=== PATIENT | female | born 1965 | race Caucasian/White ===

== ENCOUNTER → 2024-02-04 07:29 | Outpatient (REF) | payer OTHER, SELFPAY | LOC: HWRAD 07:29 | PROVIDERS: ATTENDING PHYSICIAN Specialist; FAMILY PHYSICIAN Family Medicine | DX: N20.0 Calculus of kidney (principal) | CPT/HCPCS: 74176 ==

== ENCOUNTER → 2024-02-12 14:29 | Outpatient (REF) | payer OTHER, SELFPAY | LOC: WDC 14:29 | PROVIDERS: ATTENDING PHYSICIAN Family Medicine | DX: Z12.31 Encounter for screening mammogram for malignant neoplasm of breast (principal); R92.8 Other abnormal and inconclusive findings on diagnostic imaging of breast | CPT/HCPCS: 76642; 77063; 77067 ==

== ENCOUNTER 2024-02-20 06:22 | Day surgery (SDC) | payer OTHER, SELFPAY ==
[2024-02-11 14:06] VITALS: BMI 27.9
[2024-02-11 14:38] LABS: Hematocrit 36.5 % (37.0-47.0); Hemoglobin 12.9 g/dL (12.0-16.0); Mean Corp Hgb Conc. 35.3 g/dL (33.0-37.0); Mean Corpuscular Hgb 30.7 pg (27.0-31.0); Mean Corpuscular Volume 86.9 fL (81.0-99.0); Mean Platelet Volume 10.4 fL (7.4-10.4); Platelet Count 212 10^3/uL (130-400); Red Cell Dist. Width 12.6 % (11.5-14.5); White Blood Cell Count 5.9 10^3/uL (4.8-10.8)
[2024-02-20 12:48] LABS: Glucose - Point of Care 116 mg/dl (70-99)
[2024-02-20] MEDS: NORMOSOL-R/PLASMALYTE-A 1000 IV (12:50)
[2024-02-20 12:52] VITALS: BMI 27.9
[2024-02-20 12:53] VITALS: BP 135/77
[2024-02-20] MEDS: TRANSDERM-SCOP 1 PATCH TRANSDERM (13:16)
[2024-02-20 15:11] VITALS: BP 130/76; BP 135/77
[2024-02-20 15:15] VITALS: BP 123/72
[2024-02-20 15:30] VITALS: BP 110/65
[2024-02-20 15:33] LABS: Glucose - Point of Care 89 mg/dl (70-99)
[2024-02-20] MEDS: Pyridium 200 MG PO (15:36)
[2024-02-20 15:42] VITALS: BP 123/70
[2024-02-20 16:07] VITALS: BP 118/68
== END 2024-02-20 16:17 | disposition home or self-care (01) ==
LOC: SDS 06:22
PROVIDERS: ATTENDING PHYSICIAN Specialist; FAMILY PHYSICIAN Family Medicine
DX: N20.2 Calculus of kidney with calculus of ureter (principal); N13.30 Unspecified hydronephrosis
CPT/HCPCS: 52356; 36415; 74018; 76000; 82962; 85027; 93005; C1894; C2617

== ENCOUNTER 2024-05-04 23:03 | Emergency (ER) | payer OTHER, SELFPAY ==
[2024-05-04 23:16] VITALS: BP 178/93
--- NOTE | 2024-05-04 23:35 | ED.GENMED ---
History of Present Illness
General
Chief Complaint: Flank Pain
Source: patient
Exam Limitations: none
Time Seen by Provider: 05/04/24 23:24
History of Present Illness
History of Present Illness:
This is a 59 year old female that comes in with c/o severe abd pain that started at 7:30pm. States that it is the left front and back. states that the pain has been constant and that she is nauseated ad having dry heaves. States that she feels like
she has to move her bowels but very little comes out. States that she did have a normal BM today. Denies any fever, chills, chest pain, SOB, diarrhea, headache, dizziness, urinary burning or frequency.
Past History
Past History
ED Past Medical History: Cancer (CML), NIDDM and Other (Nephrolithiasis, Sleep apnea, UTI, Pelvic pain)
ED Past Surgical History: Appendectomy, Cholecystectomy, Gynecological (Hysterectomy) and Urological
Social History
Tobacco: Non-smoker
Alcohol: None
Drug: None
Personal:
Living: with family
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
Family History
Family History: Other (Reviewed and non-contributory)
Review of Systems
Review of Systems
All Other Systems: ROS reviewed and negative except as documented in HPI and ROS
Constitutional: Reports no symptoms; Denies fever or chills
EENT: Reports no symptoms
Respiratory: Reports no symptoms; Denies cough or trouble breathing
Cardiac: Reports no symptoms; Denies chest pain
ABD/GI: Reports abdominal pain, nausea and vomiting; Denies diarrhea
: Reports no symptoms; Denies dysuria, frequency or urgency
Musculoskeletal: Reports no symptoms
Skin: Reports no symptoms
Neurological: Reports no symptoms; Denies dizzy or headache
Psychiatric: Reports no symptoms
Phy Exam
General Physical Exam
General Presentation: mild distress
General age: appears stated age
General Skin: warm and dry
General Habitus: normal
General Mental: alert
General Hydration: dry mucous membranes
ENT Exam
ENT Exam: TM's normal, pharynx normal and neck supple
Eye Exam
Eye Exam: EOMI
Cardiovascular Exam
Cardiovascular Exam: regular rate/rhythm, no edema, no murmur and normal peripheral pulses
Pulmonary Exam
Pulmonary Exam: lungs clear, no respiratory distress, no rales, chest non tender, no crackles, no rhonchi, no wheezing and no cough
Gastrointestinal Exam
Gastrointestinal Exam: normal bowel sounds, soft, no organomegaly, no pulsatile mass, non distended, no cva tenderness and tender (Slight left sided tenderness with palpation. )
Musculoskeletal Exam
Musculoskeletal Exam: full ROM and no edema
Skin Exam
Skin Exam: normal color, warm/dry, no rash and no petechia
Psychiatric Exam
Psychiatric Exam: normal mood/affect
Course
Orders/Labs/Results
Orders:
Orders
05/04/24 23:34
Urinalysis Reflex To Culture Urgent
Date Specimen was Collected: 05/05/24
Time Specimen was Collected: 01:24
0.9% Sodium Chloride 1000 ml [Nss] 1,000 ml IV BOLUS
Ketorolac [Toradol] 30 mg IV NOW STA
05/04/24 23:41
Ondansetron Injectable [Zofran] 4 mg IV NOW STA
05/04/24 23:44
Complete Blood Count/With Diff Urgent
Comprehensive Metabolic Panel Urgent
05/05/24 00:01
CT Abd/pelvis W Iv Cont Urgent
Reason For Exam: Left sided abd pain
05/05/24 01:25
Urine Microscopic Reflex Cult Urgent
Tamsulosin [Flomax] 0.4 mg PO NOW STA
Abnormal Lab Results
05/04/24 05/05/24
23:44 01:25
WBC 12.4 H 10^3/uL
(4.8-10.8)
Absolute Neuts (auto) 10.4 H 10^3/uL
(1.4-6.5)
Neutrophils % 84.2 H %
(42.2-75.2)
Lymphocytes % 9.5 L %
(20.5-51.1)
BUN 27 H mg/dl
(7-17)
Glucose 145 H mg/dl
(70-99)
Ur Occult Blood Reflex 4+ A
(Negative)
Urine RBC 50-60 A /HPF
(0-2)
Urine Bacteria (Reflex) Few A
(Negative)
05/04/24 23:44
05/04/24 23:44
Leukocytosis. Dehydration. Hyperglycemia, Urine negative for infection.
Vital Signs
Initial and Last Documented VS:
Initial Vital Signs
Temp Pulse Resp BP Pulse Ox
98.1 F 76 18 178/93 98
05/04/24 23:16 05/04/24 23:16 05/04/24 23:16 05/04/24 23:16 05/04/24 23:16
Last Documented Vital Signs
Temp Pulse Resp BP Pulse Ox
98.1 F 80 17 119/78 98
05/04/24 23:16 05/05/24 01:34 05/05/24 01:34 05/05/24 01:34 05/05/24 01:34
MDM/Problems Addressed
Differential Diagnosis Includes:
Renal calculus, diverticulitis,
MDM/Problems Addressed:
This is a 59 year old female that comes in with c/o left sided abd pain and back pain. States that this started about 7:30pm and has been constant. States that she is nauseated and having dry heaves.
Will check labs, give IV fluids, CT abd and medicate for nausea and pain.
Back into see patient. Explained that she has a 6mm X 5mm renal calculus in the left mid ureter. Patient states that her pain is better and she would like to try going home. Will start patient on Flomax. Patient can use Tylenol 1000mg every 6 hours
for pain and alternate with Ibuprofen 600mg every 6 hours with food. Will also sent prescription to her pharmacy for Zofran for nausea/vomiting and Oxycodone for severe pain. Patient to call her urologist tomorrow and make him aware of her recent CT
scan and findings. Await urine.
Chronic conditions affecting care: Cancer
Acute Exacerbation and/or Progression of Chronic Illness:
NA
*Radiology
Radiology exam reviewed: radiology read reviewed (CT night hawk-Moderate left hydronephrosis and hydroureter due to a prominent 6mm X 5mm obstructing stone within the mid left ureter at the level of the upper sacrum. Prominent asymmetric left
perinephric fat stranding and ill-defined fluid with delayed enhancement in the left kidney. Multiple ), all reviewed NAD by ED Provider (CT cont-multiple additional nonobstructing bilateral renal stones. There is excreted intravenous contrast with
the bilateral renal collecting systems. Bladder is normal. Hysterectomy. Cholecystectomy. NO biliary dilation. Mild stool present within the colon. NO evidence of bowel obstruction or bowel) and other (CT cont-wall thickening. Appendectomy. No free
fluid or free air. Mild atelectasis at the lung bases. Mild degenerative changes of the spine. )
*Pulse Oximetry
Patient hypoxic: no
*EKG
Interpreted by ED Provider?: NA
Rate: EKG- N/A
*Manager Information Interpretation
Rate: Manager Information- N/A
*Critical Care Note
Total Time (30-74mins, 75-104mins- exclusive of procedures): Not Applicable
ED Attending Note
-
Portions of this chart may have been created with voice recognition software.� Occasional wrong word or��sound alike� substitutions may have occurred due to the inherent limitations of voice recognition software.
Discharge Plan
Departure
Patient Disposition: Home (Routine Discharge)
Date of Disposition: 05/05/24
Time of Disposition: 01:46
Patient with high blood pressure during this ER visit?: No
Condition: Good
Covid-19: Not Applicable
Discharge Problem:
Renal calculus, left
Instructions: Renal Colic (DC), How to Strain Your Urine
Prescriptions:
New
tamsulosin [Flomax] 0.4 mg capsule
0.4 mg PO HS Qty: 7 0RF
oxycodone 5 mg tablet
5 mg PO Q6H PRN (Reason: Pain) Qty: 10 0RF
ondansetron 4 mg tablet,disintegrating
4 mg PO Q8H PRN (Reason: nausea and vomiting) Qty: 10 0RF
No Action
duloxetine 60 MG capsule,delayed release(DR/EC)
40 mg PO QPM
Probiotic 1 EACH capsule
1 ea PO DAILY
prednisone 1 mg Tablet
3 mg PO DAILY
glimepiride 4 mg Tablet
4 mg PO DAILY
rosuvastatin 5 mg Tablet
5 mg PO .2X'SPERWEEK
pregabalin [Lyrica] 25 mg Capsule
25 mg PO BID
insulin glargine [Basaglar KwikPen U-100 Insulin] 100 unit/mL (3 mL) Insulin Pen
20 unit SC HS
Patient Comments:
pt took 15 units
hydroxychloroquine 100 mg Tablet
100 mg PO BID
glimepiride 2 mg Tablet
2 mg PO HS
potassium citrate 10 mEq (1,080 mg) Tablet Extended Release
2,160 mg PO BID
allopurinol 300 mg Tablet
300 mg PO .HS
cyclobenzaprine [Flexeril] 10 mg Tablet
10 mg PO HS PRN (Reason: kidney stone)
hydrochlorothiazide 50 mg Tablet
50 mg PO DAILY
Referrals:
Carlos Arciniega MD [Active] - Follow up in 5-7 days
Andre Luis DO [Family Provider] -
Activity Restrictions/Additional Instructions:
As discussed, you have a 6 X 5mm renal calculus in the left mid ureter. Please increase your water intake to 8-8oz glasses daily. You have had three prescriptions sent to your pharmacy. The first is a narcotic pain medication for severe pain. The
second is for Flomax that will help relax the smooth muscle and the third is for Zofran that will help with any nausea, vomiting. You may also use Tylenol 1000mg every 6 hours for pain and alternate with ibuprofen 600mg every 6 hours with food.
Please increased your water intake to 8-8oz glasses daily. Please call the urologist and make him aware that you were here and he can look at the CT scan. IF YOU HAVE PAIN THAT IS NOT CONTROLLED, VOMITING, FEVER, OR YOU HAVE ANY OTHER CONCERNS
PLEASE RETURN TO THE EMERGENCY ROOM.
Interventions
Interventions:
*General Assessment Last Done: 05/04/24 23:16
ED- Fall Risk Assessment Last Done: 05/05/24 01:35
FG-Motpxt-Jhujpubidw Assessment Last Done: 05/05/24 01:35
ED-Female Genitourinary Assessment Last Done: 05/05/24 01:35
Discharge Date and Time
Print Language: CYMRAES
[2024-05-04] MEDS: NSS 1000 IV (23:41)
[2024-05-04] MEDS: TORADOL 30 MG IV (23:42)
[2024-05-04] MEDS: ZOFRAN 4 MG IV (23:45)
[2024-05-04 23:50] LABS: % Basophils 0.5 % (0-2); % Eosinophils 1.1 % (0-6); % Immature Granulocytes 0.3 % (0-0.5); % Lymphocytes 9.5 % (20.5-51.1); % Monocytes 4.4 % (1.7-9.3); % Neutrophils 84.2 % (42.2-75.2); Absolute Basophils 0.1 10^3/uL (0-0.2); Absolute Eosinophils 0.1 10^3/uL (0-0.7); Absolute Lymphocytes 1.2 10^3/uL (1.2-3.4); Absolute Monocytes 0.6 10^3/uL (0.1-0.6); Absolute Neutrophils 10.4 10^3/uL (1.4-6.5); Hematocrit 40.2 % (37.0-47.0); Hemoglobin 13.3 g/dL (12.0-16.0); Mean Corp Hgb Conc. 33.1 g/dL (33.0-37.0); Mean Corpuscular Volume 90.7 fL (81.0-99.0); Mean Platelet Volume 9.9 fL (7.4-10.4); Nucleated Red Blood Cells % 0 %; Platelet Count 183 10^3/uL (130-400); Red Blood Cell Count 4.43 10^6/uL (4.20-5.40); Red Cell Dist. Width 12.9 % (11.5-14.5); White Blood Cell Count 12.4 10^3/uL (4.8-10.8)
[2024-05-05 00:07] LABS: ALT (SGPT) 27 U/L (0-35); AST (SGOT) 33 U/L (14-36); Alkaline Phosphatase 75 U/L (38-126); Blood Urea Nitrogen 27 mg/dl (7-17); Calcium 9.6 mg/dl (8.4-10.2); Carbon Dioxide 27 mmol/L (22-30); Chloride 102 mmol/L (98-107); Glucose 145 mg/dl (70-99); Potassium 4.1 mmol/L (3.5-5.1); Sodium 142 mmol/L (135-145); Total Bilirubin 0.6 mg/dl (0.2-1.3); Total Protein 7.7 g/dl (6.3-8.2); eGFR > 60.00
[2024-05-05] MEDS: FLOMAX 0.4 MG PO (01:32)
[2024-05-05 01:34] VITALS: BP 119/78
[2024-05-05 01:36] LABS: Urine Albumin Trace (Neg - Trace); Urine Bilirubin Negative (Negative); Urine Character Clear (Clear); Urine Color Yellow; Urine Glucose Negative (Negative); Urine Ketone Negative (Negative); Urine Leukocyte Negative (Negative); Urine Nitrite Negative (Negative); Urine Occult Blood 4+ (Negative); Urine Urobilinogen Negative (Neg - 1+); Urine pH 6.5 (5.0-9.0)
[2024-05-05 01:45] LABS: Urine Bacteria Few (Negative); Urine Red Blood Cell 50-60 /HPF (0-2); Urine White Cell 0-2 /HPF (0-5)
== END 2024-05-05 02:11 | disposition home or self-care (01) ==
LOC: EMR 23:03
PROVIDERS: Clinical Nurse Specialist Family Health; EMERGENCY PHYSICIAN Emergency Medicine; FAMILY PHYSICIAN Family Medicine
DX: N13.2 Hydronephrosis with renal and ureteral calculous obstruction (principal); E11.65 Type 2 diabetes mellitus with hyperglycemia; E86.0 Dehydration; G47.30 Sleep apnea, unspecified; Z90.49 Acquired absence of other specified parts of digestive tract; Z90.710 Acquired absence of both cervix and uterus; Z85.6 Personal history of leukemia
CPT/HCPCS: 96374; 96375; 96361; 99284; 74177; 80053; 81003; 81015; 85025; Q9967

== ENCOUNTER 2024-10-14 13:59 | Inpatient (IN) | payer OTHER, SELFPAY ==
[2024-10-14] VITALS (18 sets, daily range): BP systolic 130–160; BP diastolic 62–98
[2024-10-14 11:17] LABS: Urine Albumin 2+ (Neg - Trace); Urine Bilirubin Negative (Negative); Urine Character Clear (Clear); Urine Color Yellow; Urine Glucose Negative (Negative); Urine Ketone Negative (Negative); Urine Leukocyte 2+ (Negative); Urine Nitrite Negative (Negative); Urine Occult Blood 4+ (Negative); Urine Specific Gravity 1.015 (<1.030); Urine Urobilinogen Negative (Neg - 1+)
[2024-10-14 11:22] LABS: % Basophils 0.6 % (0-2); % Eosinophils 1.6 % (0-6); % Immature Granulocytes 0.3 % (0-0.5); % Monocytes 5.4 % (1.7-9.3); % Neutrophils 72.1 % (42.2-75.2); Absolute Eosinophils 0.1 10^3/uL (0-0.7); Absolute Lymphocytes 1.4 10^3/uL (1.2-3.4); Absolute Monocytes 0.4 10^3/uL (0.1-0.6); Absolute Neutrophils 4.9 10^3/uL (1.4-6.5); Hematocrit 38.3 % (37.0-47.0); Hemoglobin 13.1 g/dL (12.0-16.0); Mean Corp Hgb Conc. 34.2 g/dL (33.0-37.0); Mean Corpuscular Volume 90.5 fL (81.0-99.0); Mean Platelet Volume 9.8 fL (7.4-10.4); Nucleated Red Blood Cells % 0 %; Platelet Count 197 10^3/uL (130-400); Red Blood Cell Count 4.23 10^6/uL (4.20-5.40); Red Cell Dist. Width 12.7 % (11.5-14.5); White Blood Cell Count 6.8 10^3/uL (4.8-10.8)
[2024-10-14] MEDS: TORADOL 15 MG IV (11:25)
[2024-10-14] MEDS: NSS 1000 IV (11:25)
--- NOTE | 2024-10-14 11:38 | ED.GENMED ---
History of Present Illness
General
Chief Complaint: Flank Pain
Source: patient
Exam Limitations: none
Time Seen by Provider: 10/14/24 10:53
Nursing documentation reviewed up to this point in time: agreed with
History of Present Illness
History of Present Illness:
59-year-old female with past medical history of diabetes, kidney stone presenting to the emergency department today with concerns of right-sided flank pain over the past week or so seems to be intermittent. Some intermittent nausea as well as
urinary symptoms. Denies any chest pains fevers or additional concerns.
Past History
Past History
ED Past Medical History: Cancer (CML), NIDDM and Other (Nephrolithiasis, Sleep apnea, UTI, Pelvic pain)
ED Past Surgical History: Appendectomy, Cholecystectomy, Gynecological (Hysterectomy) and Urological
Social History
Tobacco: Non-smoker
Alcohol: None
Drug: None
Personal:
Living: with family
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
Family History
Family History: Other (Reviewed and non-contributory)
Review of Systems
Review of Systems
Allergies reviewed?: Yes
All Other Systems: ROS reviewed and negative except as documented in HPI and ROS
Phy Exam
Physical Exam
Physical Exam:
GENERAL: Alert , in no apparent distress
EYE: pupils equal and reactive
NECK: Supple, no significant adenopathy.
ENT: o/p clr, mmm.
CARDIAC: Regular rate and rhythm .
LUNGS: Clear breath sounds bilaterally, no acute respiratory distress, no wheezes/rales/rhonchi
ABDOMEN: Soft, without focal tenderness, no r/g, no cvat
NEUROLOGICAL: Alert and oriented, no focal neuro deficits
SKIN: Warm and dry, skin intact.
MUSCULOSKELETAL: No edema, well perfused.
PSYCH: Normal and appropriate interaction.
Course
Orders/Labs/Results
Orders:
Orders
10/14/24 10:56
Urinalysis Reflex To Culture Urgent
Date Specimen was Collected: 10/14/24
Time Specimen was Collected: 10:54
Urine Microscopic Reflex Cult Urgent
Urine Culture Urgent
JOY Source: U
Specimen Description:
Date Specimen was Collected: 10/14/24
Time Specimen was Collected: 10:54
10/14/24 11:08
CMP [Comprehensive Metabolic Panel] Urgent
Complete Blood Count/With Diff Urgent
Lipase Urgent
10/14/24 11:21
0.9% Sodium Chloride 1000 ml [Nss] 1,000 ml IV BOLUS
Ketorolac [Toradol] 15 mg IV NOW STA
10/14/24 11:22
CT Abd/pel Without Iv Or Oral Urgent
Comment:
Reason For Exam: R flank pain
10/14/24 13:16
CefTRIAXone [Rocephin] 2,000 mg IV NOW STA
10/14/24 13:22
Sterile Water [Sterile Water For Injection] 20 ml .ROUTE .STK-MED
Abnormal Lab Results
10/14/24 10/14/24
10:56 11:08
Lymphocytes % 20.0 L %
(20.5-51.1)
BUN 22 H mg/dl
(7-17)
Glucose 196 H mg/dl
(70-99)
Ur Occult Blood Reflex 4+ A
(Negative)
Leukocyte Esterase Rfl 2+ A
(Negative)
Urine RBC >100 A /HPF
(0-2)
Urine WBC (Reflex) 40-50 A /HPF
(0-5)
Urine Bacteria (Reflex) Few A
(Negative)
Urine Albumin (Reflex) 2+ A
(Neg - Trace)
10/14/24 11:08
10/14/24 11:08
Vital Signs
Initial and Last Documented VS:
Initial Vital Signs
Temp Pulse Resp BP Pulse Ox
98.2 F 93 16 158/98 100
10/14/24 10:32 10/14/24 10:32 10/14/24 10:32 10/14/24 10:32 10/14/24 10:32
Last Documented Vital Signs
Temp Pulse Resp BP Pulse Ox
98.2 F 93 16 139/74 95
10/14/24 10:32 10/14/24 10:32 10/14/24 10:32 10/14/24 12:06 10/14/24 11:45
MDM/Problems Addressed
MDM/Problems Addressed:
59-year-old female presenting to the emergency department today with concerns of right-sided flank pain over the past week somewhat intermittent associated urinary symptoms. Vital signs normal on arrival. Concern for kidney stone plan for CT scan
for further assessment. CT scan showing piling of stones bilaterally in bilateral ureters. Case discussed immediately with urology the like to take her to the OR. Stable throughout ER stay.
*Critical Care Note
Total Time (30-74mins, 75-104mins- exclusive of procedures): Not Applicable
ED Attending Note
-
Portions of this chart may have been created with voice recognition software.� Occasional wrong word or��sound alike� substitutions may have occurred due to the inherent limitations of voice recognition software.
Discharge Plan
Departure
Patient Disposition: Admit
Date of Disposition: 10/14/24
Time of Disposition: 13:31
Admit to: Med/Surg
Admit to doctor: Htay
Presentation/result/management discussed w/ accepting MD/DO: Hospitalist
Patient with high blood pressure during this ER visit?: No
Condition: Good
Covid-19: Not Applicable
Discharge Problem:
Bilateral ureteral calculi
Prescriptions:
No Action
duloxetine 60 MG capsule,delayed release(DR/EC)
30 mg PO QPM
Probiotic 1 EACH capsule
1 ea PO DAILY
prednisone 1 mg Tablet
3 mg PO DAILY
glimepiride 4 mg Tablet
4 mg PO DAILY
rosuvastatin 5 mg Tablet
5 mg PO .2X'SPERWEEK
pregabalin [Lyrica] 25 mg Capsule
25 mg PO BID
insulin glargine [Basaglar KwikPen U-100 Insulin] 100 unit/mL (3 mL) Insulin Pen
13 unit SC HS
Patient Comments:
pt took 15 units
hydroxychloroquine 100 mg Tablet
100 mg PO BID
glimepiride 2 mg Tablet
2 mg PO HS
potassium citrate 10 mEq (1,080 mg) Tablet Extended Release
2,160 mg PO BID
allopurinol 300 mg Tablet
300 mg PO .HS
cyclobenzaprine [Flexeril] 10 mg Tablet
10 mg PO HS PRN (Reason: kidney stone)
hydrochlorothiazide 50 mg Tablet
50 mg PO DAILY
tamsulosin [Flomax] 0.4 mg capsule
0.4 mg PO HS Qty: 7 0RF
Referrals:
Andre Luis DO [Family Provider] -
Interventions
Interventions:
*Risk Screen - Suicide Last Done: 10/14/24 10:34
*General Assessment Last Done: 10/14/24 10:34
*Neglect/Abuse Screening Last Done: 10/14/24 10:34
*ED- Fall Risk Assessment Last Done: 10/14/24 10:34
*ED COVID-19 Vaccine History Last Done: 10/14/24 11:18
IG-Msvung-Nugdozfjks Assessment Last Done: 10/14/24 11:18
ED-Female Genitourinary Assessment Last Done: 10/14/24 11:18
Discharge Date and Time
Print Language: SLOVAK
[2024-10-14 11:41] LABS: ALT (SGPT) 27 U/L (0-35); AST (SGOT) 33 U/L (14-36); Albumin 4.6 g/dl (3.5-5.0); Alkaline Phosphatase 67 U/L (38-126); Blood Urea Nitrogen 22 mg/dl (7-17); Calcium 10.1 mg/dl (8.4-10.2); Carbon Dioxide 30 mmol/L (22-30); Chloride 101 mmol/L (98-107); Estimated Creatinine Clearance 92 ml/min; Glucose 196 mg/dl (70-99); Lipase 148 U/L (23-300); Potassium 3.7 mmol/L (3.5-5.1); Sodium 142 mmol/L (135-145); Total Bilirubin 0.8 mg/dl (0.2-1.3); Total Protein 7.6 g/dl (6.3-8.2); eGFR > 60.00
[2024-10-14 11:55] LABS: Urine Squamous Cell >30 /LPF (Few)
[2024-10-14 11:56] LABS: Urine Amorphous Seen; Urine Urothelial Cell 21-25 /LPF (FEW)
[2024-10-14 11:58] LABS: Urine Red Blood Cell >100 /HPF (0-2)
[2024-10-14 11:59] LABS: Urine White Cell 40-50 /HPF (0-5)
[2024-10-14 12:01] LABS: Urine Bacteria Few (Negative)
--- NOTE | 2024-10-14 13:16 | HPS.HSE ---
Addendum entered and electronically signed by Jason Valerio MD 10/14/24 14:35:
I saw and examined the patient.
The STAFF SUBMAR[employer] OFFICER or PA's note was reviewed and I agree with the note.
Comment: see my update note
Original Note:
Family Physician
-
Family Physician: Andre Luis
Chief Complaint
-
right flank pain
History of Present Illness
Patient is a 59-year-old female with past medical history significant for essential hypertension, hyperlipidemia, DM II, chronic myelocytic leukemia and depression who presented to [facility] Ed for evaluation of right flank pain. Patient reports right
flank pain that radiated to back and lower abdomen. She does have some discomfort on the left but right is greater than the left. She reports nausea, urgency, difficulty emptying bladder and mild constipation. Denies any fever, chills, emesis or
diarrhea.
Medical History
Past Medical History
Past Medical History: Reports Other
Additional Past Medical History:
essential hypertension
hyperlipidemia
DM II
chronic myelocytic leukemia
depression
inflammatory arthritis
LILIAN
Hx Kidney stones
Past Surgical History: Reports Other
Additional Past Surgical History:
b/l ureteroscopy with extensive lithotripsy, b/l basket extraction of stone and fragments, b/l ureteral stenting, Fluoroscopy() 07/22/2014
Carpal tunnel release 07/22/2014
Cholecystectomy 07/22/2014
Appendectomy 07/22/2014
left ureteroscopy, laser lithotripsy of stone,left double-j stent placement 06/12/2014
Robotic assisted total laproscopic hysterectomy, bilateral salpigo-oopherectomy,extensive lysis of adhesions 05/22/2014
eft Ureteroscopy with laser lithotripsy and basket extraction of a collection left uretral calculi with subsequent ureteral stent insertion, Left pyeloscopy with laser lithotripsy of left renal calculi 12/2016
Mole removal 01/2022
L4-5 ILESI No Sedation 11/26/23
LT L4-5 ILESI NO SED .09.08
Kidney Stone Surgery 2023
Social History
Tobacco: Non-smoker
Alcohol: None
Drug: None
Personal:
Living: With Family
Employment: Employed
Family History
Family History: Not pertinent
Allergies / Home Medications
Allergies reflects when Allergies were last updated in [employer].
Home Medications with original date entered in [employer]
Allergy/Medication List:
Allergies
Allergy/AdvReac Type Severity Reaction Status Date / Time
No Known Allergies Allergy Verified 10/14/24 10:34
Home Medications
Lactobacillus acidophilus 10 billion cell capsule (Probiotic) 1 ea PO DAILY 05/06/14
duloxetine 60 mg capsule,delayed release 30 mg PO QPM 05/06/14
glimepiride 2 mg tablet 2 mg PO HS 02/13/24
glimepiride 4 mg tablet 4 mg PO DAILY 02/13/24
hydroxychloroquine 100 mg tablet 100 mg PO BID 02/13/24
insulin glargine 100 unit/mL (3 mL) subcutaneous pen (Basaglar KwikPen U-100 Insulin) 13 unit SC HS 02/13/24
potassium citrate 10 mEq (1,080 mg) tablet,extended release 2,160 mg PO BID 02/13/24
prednisone 1 mg tablet 3 mg PO DAILY 02/13/24
pregabalin 25 mg capsule (Lyrica) 25 mg PO BID 02/13/24
rosuvastatin 5 mg tablet 5 mg PO .2X'SPERWEEK 02/13/24
allopurinol 300 mg tablet 300 mg PO .HS 02/20/24
cyclobenzaprine 10 mg tablet 10 mg PO HS PRN kidney stone 02/20/24
hydrochlorothiazide 50 mg tablet 50 mg PO DAILY 02/20/24
tamsulosin 0.4 mg capsule (Flomax) 0.4 mg PO HS Urinary issue #7 caps 05/05/24
Review of Systems
-
History Source: Patient
: Reports Frequency, Flank Pain, Difficulty Voiding and Urgency
Physical Exam
Vital Signs
Vital Signs
Temp Pulse Resp BP Pulse Ox
98.2 F 93 16 139/74 95
10/14/24 10:32 10/14/24 10:32 10/14/24 10:32 10/14/24 12:06 10/14/24 11:45
Physical Exam
General: Well Developed, Well Nourished, No Apparent Distress, Comfortable, Conversant and Obese
HEENT: NormoCephalic, Moist mucous membranes, Atraumatic, [place] Conjunctivae, Nose Appears Normal and Ears Appear Normal
Respiratory: Clear
Cardiac: S1/S2 and Regular Rhythm
Breast: Deferred by me
GI: Soft, Non Tender, Non Distended and Normal Bowel Sounds
Rectal: Deferred by Provider
Genito-urinary: Deferred by me
Musculoskeletal: No Clubbing, No Cyanosis and No Edema
Skin: Warm and IV/Catheter Site
Neuro: Awake, Alert, AO x 3 and Nonfocal/grossly intact
Psych: Calm and Intact Judgment/Insight
Laboratory Results
-
10/14/24 11:08
10/14/24 11:08
Laboratory Results
Total Bilirubin 0.8 mg/dl (0.2-1.3) 10/14/24 11:08
AST 33 U/L (14-36) 10/14/24 11:08
ALT 27 U/L (0-35) 10/14/24 11:08
Alkaline Phosphatase 67 U/L (38-126) 10/14/24 11:08
Lipase 148 U/L (23-300) 10/14/24 11:08
Data Reviewed
-
CT Scan: Report Reviewed by me (Abd/Pel: 1. SEVERE ACUTE ACUTE LEFT HYDROURETERONEPHROSIS secondary to a column of obstructing distal left ureteral calculi (STEINSTRASSE). 2. MODERATE ACUTE RIGHT HYDRONEPHROSIS secondary to obstructing calculi
in the right proximal ureter and right ureterovesical junction. 3. Large number of)
Lab Data: Labs Reviewed by me
Impression/Plan
-
IMPRESSION/PLAN:
#right flank pain, right back pain and lower abdominal pain
#bilateral obstructing kidney stones
#hydronephrosis
#Hx Kidney stones
UA: not indicative of UTI
Urine culture: pending
Abd/Pel CT: 1. SEVERE ACUTE ACUTE LEFT HYDROURETERONEPHROSIS secondary to a column of obstructing distal left ureteral calculi (STEINSTRASSE).
2. MODERATE ACUTE RIGHT HYDRONEPHROSIS secondary to obstructing calculi in the right proximal ureter and right ureterovesical junction.
3. Large number of bilateral intrarenal calculi.
4. Previous STEW-BSO, appendectomy, and hysterectomy.
5. Grade 1 anterolisthesis of L4 on L5 secondary to severe bilateral facet joint arthrosis.
- Admit to med/surg
- Consult Urology
- NPO for OR
- continue cyclobenzaprine and tamsulosin
- pain regimen
- antiemetics
#essential hypertension
- continue hydrochlorothiazide
#hyperlipidemia
- continue rosuvastatin
#DM II
- AccuCheck AC & HS
- SSI
- continue insulin glargine
- continue glimepiride
#gout
- continue allopurinol
#inflammatory arthritis
- hold hydroxychloroquine
- continue prednisone
#depression
- continue Cymbalta
#LILIAN
- CPAP at night
#chronic myelocytic leukemia
followed by Dr. Acuña at the [facility]
currently in remission
Code status: full code
DVT prophylaxis: SCDs
[2024-10-14] MEDS: ROCEPHIN 2000 MG IV (13:26)
--- NOTE | 2024-10-14 13:43 | W.PN.UPDATE ---
Update Note
Progress Note Update
This note serves as an addendum to the H&P by stave bolt equalizer JACEK
Nupur Gonzalez
HPI
59F HX Nephrolithiasis, stent procedure, HX CML, IrDMT2, Sleep apnea, UTI, Pelvic pain seen at ER;
- patient concerns of right-sided flank pain over the past week or so seems to be intermittent.
- Some intermittent nausea as well as urinary symptoms.
- Last meal was last night
Denies any chest pains fevers or additional concerns.
PHX; see above
Reviewed VS: AFVSS
PE
Gen: NAD, not toxic looking
HEENT: anicteric
Neck: supple
Lungs: CTA
Cor: RRR S1 S2
Abdomen: soft NT NG NRT
: Bilateral NON TENDER CVAs
PAINTER SHIPYARD: AAO3
MS: no edema
Psych: nl mood and affect
Data
Unremarkable labs
UA does not looks infected
CT Abdomen and Pelvis without IV Contrast
1. SEVERE ACUTE ACUTE LEFT HYDROURETERONEPHROSIS secondary to a column of obstructing distal left ureteral calculi (STEINSTRASSE).
2. MODERATE ACUTE RIGHT HYDRONEPHROSIS secondary to obstructing calculi in the right proximal ureter and right ureterovesical junction.
3. Large number of bilateral intrarenal calculi.
4. Previous STEW-BSO, appendectomy, and hysterectomy.
5. Grade 1 anterolisthesis of L4 on L5 secondary to severe bilateral facet joint arthrosis.
ASSESSMENT & PLAN
Severe acute Lt hydroureteronephrosis due to column of obstructing distal left ureteral calcul
Moderate Rt Hydronephrosis secondary to obstructing calculi in the right proximal ureter and right ureterovesical junction.
Large number of bilateral intrarenal calculi
- Last meal was last night dinner
- Unremarkable labs
- Afebrile, n WCC
- UA does not look infected more microscopic hematuria
- NPO and IVF
- PRN IV Dilaudid
- PRN anti emetics
- Uro consulted - plan for OR in an hour
IrDMT2
- Hold Glimepride
- Cont with [employer] EXAMINER Lantus dose for now - then can be modifes post Uro procedure
- add ISS low
Benign HTN
- c/w HCTZ
HX Gout
- on allopurinol
HX chronic pain syndrome due to OA ? inflammatory
- on Duloxetine, Lyrica and cyclobenzaprine
- on Hydroxychloroquine - hold due to risk of complicated UTI
HLD
- on Rosuvastatin
DVT Px: SCD
Full code
IP MS
--- NOTE | 2024-10-14 14:25 | W.PN.URO.CBU ---
Today's Communication / Plan
-
needs bilaterl u scpope and attempt to reduce stone burden
Assessment / Plan
-
bilaterl stones prox and sidstal on rt and renal mostlky distal but lg number left distal ureter
Diagnosis
-
Date of Service: October 14, 2024
-
Patient Diagnosis:bilateral uretral stones with partial obstruction
Post Op Day:
Subjective
-
bilateral colic no fever chils
Objective
-
Vital Signs
Temp Pulse Resp BP Pulse Ox
98.2 F 93 16 149/71 95
10/14/24 10:32 10/14/24 10:32 10/14/24 10:32 10/14/24 13:00 10/14/24 11:45
Laboratory Results
10/14/24 11:08
10/14/24 11:08
Review of Systems
-
: Flank Pain
Physical Exam
-
General - well developed, well nourished, no acute distress non toxic
Chest - clear bilaterally
Abdomen - soft, non-tender, positive bowel sounds, no CVAT, no incisional pain or distention
Genitalia - normal
Rectal - normal
Skin - warm & dry with no rash
Neuro - AOx3, no motor deficits
Extremities - no clubbing, no cyanosis, no edema
Incision - clean, dry
Dressing - clean, dry, intact
Care Review
Data Reviewed
Discussed with: Hospitalist and Nursing
CT Scan: Image Pers Reviewed
--- NOTE | 2024-10-14 15:35 | W.SUR.POST ---
Surgical Immediate Post Op
Note
Pre Op Diagnosis: bilateral ureteral stones / obstruction
Post Op Diagnosissame
Procedure Performed:bilateal urerteroscopy laser bilateral stone baket exrractins an jj stents
Primary Surgeon: laineyner
Secondary Surgeons:
Anesthesiageneral dr mara:
Estimated Blood Loss: 2cc
Fluids: nss
Drains/Shunts: bilateral 4.7 24 cm jj stents
Specimens/Culturesyrine for c and s and bilater stones
Doppler/Duplex/Angio (Y/N):
Complications:0
Operative Findings: bilateral lg ureteal stone burdens
[2024-10-14] MEDS: DETROL LA 4 MG PO (16:11)
[2024-10-14] MEDS: Pyridium 200 MG PO (16:15)
[2024-10-14] MEDS: SUBLIMAZE 25 MCG IV ×2 (16:16→16:38)
[2024-10-14 16:24] LABS: Glucose - Point of Care 133 mg/dl (70-99)
[2024-10-14] MEDS: CYMBALTA DELAYED RELEASE 30 MG PO (18:18)
[2024-10-14 18:50] LABS: Glucose - Point of Care 210 mg/dl (70-99)
[2024-10-14] MEDS: AMARYL 2 MG PO (21:50)
[2024-10-14] MEDS: LYRICA 25 MG PO (21:50)
[2024-10-14] MEDS: UROCIT-K 10 MEQ PO (21:50)
[2024-10-14] MEDS: FLOMAX 0.4 MG PO (21:50)
[2024-10-14] MEDS: ZYLOPRIM 300 MG PO (21:50)
[2024-10-14 21:53] LABS: Glucose - Point of Care 307 mg/dl (70-99)
[2024-10-14] MEDS: PERCOCET 5/325 1 TABLET PO (21:59)
[2024-10-14] MEDS: LANTUS 0.13 UNITS SC (21:59)
[2024-10-15 03:00] VITALS: BP 119/67
[2024-10-15 07:48] LABS: Blood Urea Nitrogen 22 mg/dl (7-17); Calcium 9.5 mg/dl (8.4-10.2); Carbon Dioxide 28 mmol/L (22-30); Chloride 102 mmol/L (98-107); Estimated Creatinine Clearance 92 ml/min; Glucose 134 mg/dl (70-99); Potassium 3.9 mmol/L (3.5-5.1); Sodium 142 mmol/L (135-145); eGFR > 60.00
[2024-10-15 07:53] LABS: Hematocrit 35.9 % (37.0-47.0); Hemoglobin 12.5 g/dL (12.0-16.0); Mean Corp Hgb Conc. 34.8 g/dL (33.0-37.0); Mean Corpuscular Hgb 31.3 pg (27.0-31.0); Mean Corpuscular Volume 89.8 fL (81.0-99.0); Mean Platelet Volume 10.1 fL (7.4-10.4); Platelet Count 211 10^3/uL (130-400); Red Cell Dist. Width 12.4 % (11.5-14.5)
[2024-10-15 07:59] LABS: Glucose - Point of Care 145 mg/dl (70-99)
[2024-10-15] MEDS: AMARYL 4 MG PO (08:05)
[2024-10-15] MEDS: UROCIT-K 10 MEQ PO (08:06)
[2024-10-15 08:10] VITALS: BP 133/79
[2024-10-15] MEDS: DELTASONE 3 MG PO (08:30)
[2024-10-15] MEDS: CRESTOR 5 MG PO (08:30)
[2024-10-15] MEDS: LYRICA 25 MG PO (08:30)
[2024-10-15] MEDS: VISBIOME 1 CAP PO (08:31)
[2024-10-15] MEDS: ORETIC 50 MG PO (08:31)
--- NOTE | 2024-10-15 09:02 | W.PN.URO.CBU ---
Today's Communication / Plan
-
home when ok by hospitaist
Assessment / Plan
-
obstruction cleared stented homeon po abs and set up laser in few weeks for remaining rt renal pelvis stone
Diagnosis
-
Date of Service: October 15, 2024
-
Patient Diagnosis:
Post Op Day:
Patient Diagnosis:bilateral uretral stones with partial obstruction
Post Op Day: 1 s/p succeesfule removal of bilatera.l obstructing stones still has 1cm stone rt renal pelvis
Subjective
-
feels wnl
Objective
-
Vital Signs
Temp Pulse Resp BP Pulse Ox
97.9 F 76 18 133/79 97
10/15/24 08:10 10/15/24 08:10 10/15/24 08:10 10/15/24 08:10 10/15/24 08:10
Intake and Output
10/14/24 10/15/24 10/16/24
06:59 06:59 06:59
Intake Total 630 / 630
Output Total 200 / 200
Balance 430 / 430
Intake:
Oral fluids 480 / 480
IV fluids (Total) 150 / 150
Normosol 150 / 150
Output:
Urine, Voided 200 / 200
Other:
Number of approximated MODERATE 4
amounts of urine
Laboratory Results
10/15/24 06:48
10/15/24 06:48
Physical Exam
-
General - well developed, well nourished, no acute distress
Chest - clear bilaterally
Abdomen - soft, non-tender, positive bowel sounds, no CVAT, no incisional pain or distention
Genitalia - normal
Rectal - normal
Skin - warm & dry with no rash
Neuro - AOx3, no motor deficits
Extremities - no clubbing, no cyanosis, no edema
Incision - clean, dry
Dressing - clean, dry, intact
Care Review
Data Reviewed
Discussed with: Nursing
--- NOTE | 2024-10-15 11:59 | W.PN.HOSP.TC ---
Today's Communication/Plan
-
d/c
Assessment / Plan
Assessment / Plan
pt is a 59 year old female
right flank pain, right back pain and lower abdominal pain due to bilateral obstructing kidney stones with hydronephrosis (Hx Kidney stones) --apprec urology--stents placed--cont ABX
essential hypertension - continue hydrochlorothiazide
hyperlipidemia- continue rosuvastatin
DM II - AccuCheck AC & HS- SSI- continue insulin glargine - continue glimepiride
gout- continue allopurinol
inflammatory arthritis- hold hydroxychloroquine - continue prednisone
depression- continue Cymbalta
LILIAN - CPAP at night
chronic myelocytic leukemia--followed by Dr. Acuña at the [facility]--currently in remission
Code status full code
DVT proph--SCDs
Anticipated Discharge: Today
Subjective/Interval History
-
Date of Service: October 15, 2024
pt without c/o
Objective Data
-
Labs:
Laboratory Results
10/15/24
06:48
WBC 10.0
Hgb 12.5
Hct 35.9 L
Plt Count 211
Sodium 142
Potassium 3.9
Chloride 102
Carbon Dioxide 28
BUN 22 H
Creatinine 0.7
Glucose 134 H
Calcium 9.5
Vital Signs:
max temp for 24 hours
10/14/24
22:50
Temp 98 F
Vital Signs
Temp Pulse Resp BP Pulse Ox
97.9 F 76 18 133/79 97
10/15/24 08:10 10/15/24 08:10 10/15/24 08:10 10/15/24 08:10 10/15/24 08:10
I&O
10/14/24 10/15/24 10/16/24
06:59 06:59 06:59
Intake Total 630 / 630 240 / 240
Output Total 200 / 200
Balance 430 / 430 240 / 240
Review of Systems
-
All other systems: Reviewed and negative
Physical Exam
-
General: Well Developed, Well Nourished and No Apparent Distress
HEENT: Normocephalic and Atraumatic
Respiratory: Clear to Auscultation; Negative Wheezes or Rhonchi
Cardiac: Regular Rhythm and S1/S2; Negative Murmur
GI: Soft, Nontender, Nondistended and Normal Bowel Sounds
Musculoskeletal: No Clubbing, No Cyanosis and No Edema
Neuro: Awake
Psych: Calm
--- NOTE | 2024-10-15 14:36 | W.DCSUMMARY ---
Discharge Summary
Discharge Data
Date of Admission: 10/14/24
Date of Discharge: 10/15/24
-
Pending Results: No
Hospital Course
Primary care physician : Andre Luis
Principal Discharge diagnosis : Bilateral obstructing kidney stones with hydronephrosis
Chronic Discharge diagnosis : Essential hypertension, hyperlipidemia, type 2 diabetes mellitus, gout, inflammatory arthritis, depression, obstructive sleep apnea, chronic myelocytic leukemia in remission
Hospital Course : Patient was a 59-year-old female with right flank pain that radiated to her back and lower abdomen. She has discomfort on the left side but the right is greater than the left. She reported nausea, urgency, difficulty emptying
bladder with mild constipation. She denied fever, chills, emesis, or diarrhea. Patient has a history of renal stones in the past. Workup finds her to have bilateral obstructing renal stones and the patient was admitted.
Problem #1: Bilateral obstructing kidney stones with hydronephrosis. Patient was seen in consultation by urology and taken to the operating room. She underwent bilateral ureteroscopy with laser and bilateral stone and basket extractions with
double-J stents. She was given prophylactic antibiotics prior to the procedure. There were no signs of sepsis. Urine culture was positive for strep species and repeat showed no growth. Antibiotics were stopped at discharge. She will follow-up
with urology for definitive stone management.
Problem #2: All other medical issues. These include Essential hypertension, hyperlipidemia, type 2 diabetes mellitus, gout, inflammatory arthritis, depression, obstructive sleep apnea, chronic myelocytic leukemia in remission. These medical issues
were stable during her hospitalization. Medications were continued as able.
Patient is stable for discharge home at this time. If there are any questions regarding this dictation or her hospital stay, please do not hesitate to call. Our office number is [phone].
Time for discharge 15 minutes.
Important imaging findings :
CT SCAN ABDOMEN/PELVIS IMPRESSION:
1. SEVERE ACUTE ACUTE LEFT HYDROURETERONEPHROSIS secondary to a column of obstructing distal left ureteral calculi (STEINSTRASSE).
2. MODERATE ACUTE RIGHT HYDRONEPHROSIS secondary to obstructing calculi in the right proximal ureter and right ureterovesical junction.
3. Large number of bilateral intrarenal calculi.
4. Previous STEW-BSO, appendectomy, and hysterectomy.
5. Grade 1 anterolisthesis of L4 on L5 secondary to severe bilateral facet joint arthrosis.
Procedure findings :
UROLOGY PROCEDURES:
1. Bilateral ureteroscopy.
2. Bilateral laser lithotripsy.
3. Bilateral stone extraction.
4. Bilateral double-J stent placement.
Discharge Plan
-
Patient Disposition: Home (Routine Discharge)
Discharge Diagnosis/Procedures: Bilateral obstructing kidney stones with hydronephrosis with bilateral ureteroscopy laser bilateral stone and double-J stents, essential hypertension, hyperlipidemia, type 2 diabetes mellitus, gout, inflammatory
arthritis, depression, obstructive sleep apnea, chronic myelocytic leukemia in remission
Diet: Regular
Activity: As tolerated
Driving Restrictions: No driving for 24 hours
Bathing Restrictions: None
Referrals:
Zay Dong MD [Active] - (call dr dong et al [phone] to set up next phase tx and eventual stent removal)
Andre Luis DO [Family Provider] - in less than 1 week
Prescriptions:
New
tamsulosin 0.4 mg Capsule
0.4 mg PO HS Qty: 30 0RF
Continued
prednisone 1 mg Tablet
3 mg PO DAILY
rosuvastatin 5 mg Tablet
5 mg PO SUWE
pregabalin [Lyrica] 25 mg Capsule
25 mg PO BID
glimepiride 2 mg Tablet
4 mg PO DAILY
allopurinol 300 mg Tablet
300 mg PO HS
oxycodone 5 mg Tablet
5 mg PO HSPRN PRN (Reason: SEVERE PAINS)
glimepiride 2 mg Tablet
2 mg PO QPM
hydroxychloroquine [Plaquenil] 200 mg Tablet
200 mg PO BID
duloxetine [Cymbalta] 30 mg Capsule,Delayed Release(Dr/Ec)
30 mg PO QPM
Visbiome 112.5 billion cell Capsule
1 cap PO DAILY
insulin glargine [Lantus Solostar U-100 Insulin] 100 unit/mL (3 mL) Insulin Pen
13 unit SC HS
potassium citrate 10 mEq (1,080 mg) Tablet Extended Release
10 meq PO BID
Held
hydrochlorothiazide 50 mg Tablet
50 mg PO DAILY
Hold Instructions: can contribute to stone formation--discuss restarting with your PCP
Discharge Orders:
Discharge Patient (As Directed); Ordered 10/15/24
Ordered By: Tory Pulido
Discharge Date and Time
Discharge Date/Time: 10/15/24 12:45
Print Language: SYRIAN
== END 2024-10-15 12:45 | disposition home or self-care (01) | DRG 660 ==
LOC: 4 EAST ACU 13:59
PROVIDERS: Nurse Practitioner Family; Physician Assistant; ADMITTING PHYSICIAN Internal Medicine; ATTENDING PHYSICIAN Internal Medicine; CONSULT PHYSICIAN Specialist; EMERGENCY PHYSICIAN Emergency Medicine; FAMILY PHYSICIAN Family Medicine
PROC: 0TC68ZZ Extirpation of Matter from Right Ureter, Via Natural or Artificial Opening Endoscopic (ICD-10-PCS; 2024-10-14)
PROC: 0T788DZ Dilation of Bilateral Ureters with Intraluminal Device, Via Natural or Artificial Opening Endoscopic (ICD-10-PCS; 2024-10-14)
PROC: 0TC78ZZ Extirpation of Matter from Left Ureter, Via Natural or Artificial Opening Endoscopic (ICD-10-PCS; 2024-10-14)
DX: N13.6 Pyonephrosis (principal); C92.10 Chronic myeloid leukemia, BCR/ABL-positive, not having achieved remission; I10 Essential (primary) hypertension; E78.5 Hyperlipidemia, unspecified; E11.9 Type 2 diabetes mellitus without complications; F32.A Depression, unspecified; M06.4 Inflammatory polyarthropathy; G47.33 Obstructive sleep apnea (adult) (pediatric); Z87.442 Personal history of urinary calculi; Z90.710 Acquired absence of both cervix and uterus; Z79.84 Long term (current) use of oral hypoglycemic drugs; Z79.4 Long term (current) use of insulin; M43.16 Spondylolisthesis, lumbar region; M10.9 Gout, unspecified; K59.00 Constipation, unspecified; Z79.899 Other long term (current) drug therapy; Z90.49 Acquired absence of other specified parts of digestive tract
CPT/HCPCS: 74018; 74176; 76000; 80048; 80053; 81003; 81015; 82365; 82962; 83690; 85025; 85027; 87077; 87086; 96374; 96375; 99285; A4300; C2617

== ENCOUNTER 2024-10-21 06:12 | Day surgery (SDC) | payer OTHER, SELFPAY ==
[2024-10-21] VITALS (8 sets, daily range): BP systolic 124–144; BP diastolic 64–77; BMI 28.3
[2024-10-21] MEDS: NORMOSOL-R/PLASMALYTE-A 1000 IV (08:20)
[2024-10-21 08:27] LABS: Glucose - Point of Care 101 mg/dl (70-99)
[2024-10-21] MEDS: EMEND 40 MG PO (09:10)
[2024-10-21 11:47] LABS: Glucose - Point of Care 108 mg/dl (70-99)
[2024-10-21] MEDS: DILAUDID 0.25 MG IV (12:12)
[2024-10-21] MEDS: Pyridium 200 MG PO (12:16)
== END 2024-10-21 13:25 | disposition home or self-care (01) ==
LOC: SDS 06:12
PROVIDERS: ATTENDING PHYSICIAN Urology
DX: N20.2 Calculus of kidney with calculus of ureter (principal)
CPT/HCPCS: 52356; 74018; 76000; 82962; 93005; A4300; C1769; C1894; C2617

== ENCOUNTER 2024-10-23 10:06 | Inpatient (IN) | payer OTHER, SELFPAY ==
[2024-10-23] VITALS (16 sets, daily range): BP systolic 101–178; BP diastolic 48–98; BMI 29.2
--- NOTE | 2024-10-23 06:38 | ED.GENMED ---
History of Present Illness
General
Chief Complaint: Flank Pain
Source: patient and records
Exam Limitations: none
Time Seen by Provider: 10/23/24 06:36
Nursing documentation reviewed up to this point in time: agreed with
History of Present Illness
History of Present Illness:
59-year-old female with past medical history of hypertension, hyperlipidemia, LILIAN on CPAP, diabetes, CML who presents to the emergency department for evaluation of flank pain, fever/chills in the setting of recent ureteral stenting for
nephrolithiasis. She was taken to the OR with Dr. Dong on 10/14/24 with bilateral ureteral obstruction from multiple kidney stones and she had lithotripsy and bilateral double-J ureteral stents placed. She was then taken back to the OR 10/21/[address] York for and once again had lithotripsy and stone extraction for residual stones and had bilateral stent exchange. She says the evening of 10/21 when she returned home she was having some urinary incontinence and continued pain and was told
that she could remove the stents herself and so she removed them that evening. She had some residual flank pain mostly on the right side the next day today woke up with rigors/chills and came to the emergency room. She has had some soreness in her
flank but says pain is generally improved. She denies abdominal pain. She reports mild nausea no vomiting. No change in bowel movements. No additional incontinence or dysuria. She did take some Advil last night.
Past History
Past History
ED Past Medical History: Cancer (CML), NIDDM and Other (Nephrolithiasis, Sleep apnea, UTI, Pelvic pain)
ED Past Surgical History: Appendectomy, Cholecystectomy, Gynecological (Hysterectomy) and Urological
Social History
Tobacco: Non-smoker
Alcohol: None
Drug: None
Personal:
Living: with family
Employment: Employed (as [employer])
Family History
Family History: Other (Reviewed and non-contributory)
Review of Systems
Review of Systems
All Other Systems: ROS reviewed and negative except as documented in HPI and ROS
Constitutional: Reports fever and chills
Respiratory: Denies trouble breathing
Cardiac: Denies chest pain
ABD/GI: Reports nausea; Denies abdominal pain, vomiting or diarrhea
: Reports flank pain; Denies dysuria or frequency
Musculoskeletal: Denies neck pain
Neurological: Denies headache
Phy Exam
Physical Exam
Physical Exam:
General: Awake, alert, febrile with rigors
Head: Normocephalic, atraumatic
Eyes: Conjunctiva normal, sclera anicteric
Throat: Airway intact, handling secretions
Neck: Trachea midline, supple without meningismus
Lungs: Clear to auscultation bilaterally, no wheezing, rales, rhonchi
Heart: Tachycardia with regular rhythm, no murmurs, gallops, or rubs
Abd: Soft, non distended, nontender to deep palpation
Back: No CVA tenderness
Neuro: No gross deficits
Extremities: Warm and well-perfused
Scores
Heart Failure Risk
Heart Failure Risk Score: Not Applicable
Heart Score for Chest Pain Patients
STEMI patient?: Not applicable
Withdrawal Assessment of Alcohol
Withdrawal Assessment Completed?: Not applicable
Sepsis
Sepsis Screening
Sepsis Assessment: Sepsis
Sepsis Screen
Sepsis Screen: Sepsis
Date: 10/23/24
Time: 08:11
Course
Orders/Labs/Results
Orders:
Orders
10/23/24 06:37
Urinalysis Reflex To Culture Urgent
Date Specimen was Collected: 10/23/24
Time Specimen was Collected: 07:36
10/23/24 06:38
0.9% Sodium Chloride 1000 ml [Nss] 1,000 ml IV BOLUS
10/23/24 06:45
Acetaminophen [Tylenol] 1,000 mg PO NOW STA
Piperacillin/Tazo 3.375 Gram [Zosyn] 3.375 gram in 50 ml IV NOW
10/23/24 06:46
CT Abd/pel Without Iv Or Oral Urgent
Comment:
Reason For Exam: urosepsis, recent stent removal, h/o kidney stones
10/23/24 07:02
Complete Blood Count/With Diff Urgent
Comprehensive Metabolic Panel Urgent
Lactate Level [Lactic Acid] Urgent
Blood Culture Q30M
JOY Source: Blood/Venous
Specimen Description:
10/23/24 07:20
Blood Culture Q30M
JOY Source: Blood/Venous
Specimen Description:
10/23/24 07:22
UROLOGY CONSULT Urgent
Consulting Provider: Eric Tavarez Jr.
Was physician already notified: Yes
Abnormal Lab Results
10/23/24
07:02
WBC 14.2 H 10^3/uL
(4.8-10.8)
RBC 3.85 L 10^6/uL
(4.20-5.40)
Hct 35.8 L %
(37.0-47.0)
MCH 31.2 H pg
(27.0-31.0)
Abs Immat Gran (auto) 0.1 H 10^3/uL
(0-0.05)
Absolute Neuts (auto) 12.0 H 10^3/uL
(1.4-6.5)
Immature Gran % 0.7 H %
(0-0.5)
Neutrophils % 84.5 H %
(42.2-75.2)
Lymphocytes % 11.3 L %
(20.5-51.1)
Chloride 108 H mmol/L
(98-107)
BUN 20 H mg/dl
(7-17)
10/23/24 07:02
10/23/24 07:02
Vital Signs
Initial and Last Documented VS:
Initial Vital Signs
Temp Pulse Resp BP Pulse Ox
36.7 C 110 22 178/98 99
10/23/24 06:15 10/23/24 06:15 10/23/24 06:15 10/23/24 06:15 10/23/24 06:15
Last Documented Vital Signs
Temp Pulse Resp BP Pulse Ox
38.6 C H 110 22 146/64 95
10/23/24 06:43 10/23/24 06:15 10/23/24 06:15 10/23/24 07:09 10/23/24 07:18
MDM/Problems Addressed
Differential Diagnosis Includes:
UTI, Nephrolithiasis
MDM/Problems Addressed:
59-year-old female with multiple recent urologic procedures presents with flank pain and rigors, fever. Hypertensive, tachycardic, tachypneic, febrile on arrival. Physical exam as above. Will place an IV send labs including a CBC and a CMP,
lactate, blood cultures. Send urinalysis and culture. Check CT abdomen pelvis to rule out ureteral obstruction. Will provide fluids and antibiotics with concern for urosepsis. Will discuss with urology pending initial workup.
Labs reviewed: CBC shows leukocytosis to 14.2. CMP shows exceptional renal function. Her CT shows some air in the left renal collecting system possibly from recent stent removal although infection cannot be excluded; she does have about 3 mm
obstructive stone in the right proximal ureter. She has already received antibiotics. Urology evaluated the bedside plan to take back to the OR. Discussed with hospitalist for admission.
Acute Exacerbation and/or Progression of Chronic Illness:
Acutely hypertensivw
Acute Exacerbation and/or Progression of Chronic Illness: HTN
*Radiology
Radiology exam reviewed: radiology read reviewed
*Pulse Oximetry
Patient hypoxic: no
*Critical Care Note
Total Time (30-74mins, 75-104mins- exclusive of procedures): Not Applicable
Data Reviewed
Review of Other/Old Records Reveals: Labs, Records, Operative Reports and Discharge Summary
Source: patient, records and spouse
Patient Management
Discussion with other providers: Hospitalist (Discussed with hospitalist) and Actuary Manager (Discussed with urology)
Escalation/DeEscalation of care consider admission/obs:
Admission indicated
ED Attending Note
-
Portions of this chart may have been created with voice recognition software.� Occasional wrong word or��sound alike� substitutions may have occurred due to the inherent limitations of voice recognition software.
Discharge Plan
Departure
Patient Disposition: Admit
Date of Disposition: 10/23/24
Time of Disposition: 08:13
Admit to doctor: Crystal
Presentation/result/management discussed w/ accepting MD/DO: Hospitalist
Discharge Problem:
Sepsis, UTI (urinary tract infection), Right nephrolithiasis
Prescriptions:
No Action
prednisone 1 mg Tablet
3 mg PO DAILY
rosuvastatin 5 mg Tablet
5 mg PO SUWE
pregabalin [Lyrica] 25 mg Capsule
25 mg PO BID
glimepiride 2 mg Tablet
4 mg PO DAILY
allopurinol 300 mg Tablet
300 mg PO HS
oxycodone 5 mg Tablet
5 mg PO HSPRN PRN (Reason: SEVERE PAINS)
glimepiride 2 mg Tablet
2 mg PO QPM
hydroxychloroquine [Plaquenil] 200 mg Tablet
200 mg PO BID
duloxetine [Cymbalta] 30 mg Capsule,Delayed Release(Dr/Ec)
30 mg PO QPM
Visbiome 112.5 billion cell Capsule
1 cap PO DAILY
insulin glargine [Lantus Solostar U-100 Insulin] 100 unit/mL (3 mL) Insulin Pen
13 unit SC HS
potassium citrate 10 mEq (1,080 mg) Tablet Extended Release
10 meq PO BID
tamsulosin 0.4 mg Capsule
0.4 mg PO HS Qty: 30 0RF
Referrals:
Andre Luis DO [Family Provider] -
Interventions
Interventions:
*Risk Screen - Suicide Last Done: 10/23/24 06:15
*General Assessment Last Done: 10/23/24 06:15
*Neglect/Abuse Screening Last Done: 10/23/24 06:15
*ED COVID-19 Vaccine History Last Done: 10/23/24 06:15
ZL-Joqupy-Uqjvipvlzq Assessment Last Done: 10/23/24 06:35
ED-Female Genitourinary Assessment Last Done: 10/23/24 06:35
Discharge Date and Time
Print Language: MEXICAN
[2024-10-23] MEDS: TYLENOL 1000 MG PO (06:55)
[2024-10-23] MEDS: NSS 1000 IV ×2 (06:56→09:04)
[2024-10-23 07:12] LABS: % Basophils 0.3 % (0-2); % Eosinophils 0.5 % (0-6); % Immature Granulocytes 0.7 % (0-0.5); % Lymphocytes 11.3 % (20.5-51.1); % Monocytes 2.7 % (1.7-9.3); % Neutrophils 84.5 % (42.2-75.2); Absolute Eosinophils 0.1 10^3/uL (0-0.7); Absolute Immature Granulocytes 0.1 10^3/uL (0-0.05); Absolute Lymphocytes 1.6 10^3/uL (1.2-3.4); Absolute Monocytes 0.4 10^3/uL (0.1-0.6); Hematocrit 35.8 % (37.0-47.0); Mean Corp Hgb Conc. 33.5 g/dL (33.0-37.0); Mean Corpuscular Hgb 31.2 pg (27.0-31.0); Mean Platelet Volume 9.8 fL (7.4-10.4); Nucleated Red Blood Cells % 0 %; Platelet Count 165 10^3/uL (130-400); Red Blood Cell Count 3.85 10^6/uL (4.20-5.40); Red Cell Dist. Width 12.9 % (11.5-14.5); White Blood Cell Count 14.2 10^3/uL (4.8-10.8)
[2024-10-23] MEDS: ZOSYN 50 IV (07:21)
[2024-10-23 07:25] LABS: Lactic Acid 1.2 mmol/L (0.7-2.0)
[2024-10-23 07:26] LABS: ALT (SGPT) 22 U/L (0-35); AST (SGOT) 23 U/L (14-36); Albumin 4.1 g/dl (3.5-5.0); Alkaline Phosphatase 56 U/L (38-126); Blood Urea Nitrogen 20 mg/dl (7-17); Calcium 9.4 mg/dl (8.4-10.2); Carbon Dioxide 30 mmol/L (22-30); Chloride 108 mmol/L (98-107); Estimated Creatinine Clearance 80 ml/min; Glucose 88 mg/dl (70-99); Potassium 3.9 mmol/L (3.5-5.1); Sodium 145 mmol/L (135-145); Total Bilirubin 0.8 mg/dl (0.2-1.3); Total Protein 6.9 g/dl (6.3-8.2); eGFR > 60.00
--- NOTE | 2024-10-23 08:13 | CON.MD ---
Consultation - Medical
-
see dictated note
pt with long hx of stones
recent 2 stage procedure for bilateral obstructing stones
stents left in place on - pt removed on sunday
now back with fever and flank pain
+ ua/fever and elevated wbc- HD stable
CT shows bilateral hydro
reviewed with pt and - to OR for stents
hopsital admit
risks, benefits, alternatives and disabilities reviewed
[2024-10-23 08:58] LABS: Urine Albumin 2+ (Neg - Trace); Urine Bilirubin Negative (Negative); Urine Character Clear (Clear); Urine Color Yellow; Urine Glucose Negative (Negative); Urine Ketone Negative (Negative); Urine Leukocyte Negative (Negative); Urine Nitrite Negative (Negative); Urine Occult Blood 4+ (Negative); Urine Urobilinogen Negative (Neg - 1+)
--- NOTE | 2024-10-23 08:59 | HPS.HSE ---
Addendum entered and electronically signed by Bonilla Clark MD 10/23/24 22:32:
Attending Addendum-
I performed a history and physical exam of the patient and discussed his management with the resident. I reviewed the resident's note and agree with the documented findings and plan of care CC/HPI- patient comes to ed with reports of rigors and
feeling 'unwell' Had recent double J stent exchange on 10/21. was having incontinence and asked to pull stens out as they were on strings. Had chills this am. Didnt take temp. Found to have fever in ed with leukocytosis. Patient denies hematuria or
dysuria. Full 12 point ROS reviewed and negative except as documented Exam- vitals reviewed in EMR GEN-NAD Heart RRR Lungs clear abd soft LE no edema
Plan:
# Sepsis secondary to urinary tract manipulation
- possible bacterial translocation
- s/p laser litho, stone extraction, and double J stent placement on 10/14
- 10/21 double J stent exchange->had incontinence and advised to pull stents out (string)
- start rocephin
- check blood cx x 2
- await urine cx
- c/s uro- for stent replacement today
- NPO
# essential hypertension - hydrochlorothiazide recently dcd
# hyperlipidemia- continue rosuvastatin
# DM II - AccuCheck AC & HS- SSI- continue insulin glargine - hold glimepiride
# Gout- continue allopurinol
# Autoimmune arthropathy- stress dose steroids hold HCQ
# Fibromyalgia- cont lyrica and cymbalta
# LILIAN - CPAP at night
# Chronic myelocytic leukemia--followed by Dr. Acuña at the [facility]--currently in remission
Code status full code
DVT proph--SCDs
ACP
Patient consented to discuss, was with family,, time spent explanation of advance directives, changes in health status, patient�s health care wishes if the patient becomes unable to make health decisions, goals of care, code status, and prognosis-
16 minutes
Time spent coordinating care, review of plan of care with resident, personally reviewed previous records in EMR, med rec, labs, radiology, d/w nursing, family total time documented is exclusive of any additional time listed that was spent in advance
care planning discussion -�75 minutes
Original Note:
Family Physician
-
Family Physician: Andre Luis
Chief Complaint
-
Chills and rigors x 2 hours
History of Present Illness
Vivian is a 59-year-old female with PMHx significant for bilateral obstructing ureteral calculi and hydroureteronephrosis, that presented to the hospital with 2 hours onset of chills and rigors. She underwent bilateral ureteral stent replacement
about a week ago and had revision done on 10/15/2024, but her ureteral stents have been draining continuously on Sunday for which she called her urologist office and was asked to pull out her tubes. She pulled out her ureteral stents, and was doing
fine over the last 2 days but woke up to have chills and rigors in the a.m. that would not go away. She came to the emergency room for evaluation of chills and rigors currently she denies having any hematuria, change in bowel habits, suprapubic
pain, bilateral flank pain. She does not have any sick contacts or recent travel.
Medical History
Past Medical History
Past Medical History: Reports Fibromyalgia, Hypercholesterolemia, IDDM and Other (b/l uter)
Additional Past Medical History:
History of bilateral recurrent obstructive ureteral calculi, s/p ureteral stents x 2, Chronic myelocytic leukemia in remission, irritable bowel syndrome, mixed hyperlipidemia, fibromyalgia, IDDM-type II, MDD, diverticulosis of large intestine,
Past Surgical History: Reports Other
Additional Past Surgical History:
Bilateral ureteral stents x 2, remote history of .
Social History
Tobacco: Non-smoker
Alcohol: None
Drug: None
Family History
Family History: Not pertinent
Allergies / Home Medications
Allergies reflects when Allergies were last updated in [facility].
Home Medications with original date entered in [facility]
Allergy/Medication List:
Allergies
Allergy/AdvReac Type Severity Reaction Status Date / Time
No Known Allergies Allergy Verified 10/21/24 08:25
Home Medications
glimepiride 2 mg tablet 4 mg PO DAILY Diabetes 02/13/24
prednisone 1 mg tablet 3 mg PO DAILY Autoimmune Disorder 02/13/24
pregabalin 25 mg capsule (Lyrica) 25 mg PO BID Pain 02/13/24
rosuvastatin 5 mg tablet 5 mg PO SUWE High Cholesterol 02/13/24
allopurinol 300 mg tablet 300 mg PO HS Gout 02/20/24
Lactobac no.2-Bifidobac no.1-S. thermo 112.5 billion cell capsule (Visbiome) 1 cap PO DAILY Supplement 10/14/24
duloxetine 30 mg capsule,delayed release (Cymbalta) 30 mg PO QPM Depression 10/14/24
glimepiride 2 mg tablet 2 mg PO QPM Diabetes 10/14/24
hydroxychloroquine 200 mg tablet (Plaquenil) 200 mg PO BID Autoimmune Disorder 10/14/24
insulin glargine 100 unit/mL (3 mL) subcutaneous pen (Lantus Solostar U-100 Insulin) 13 unit SC HS Diabetes 10/14/24
oxycodone 5 mg tablet 5 mg PO HSPRN PRN SEVERE PAINS 10/14/24
potassium citrate 10 mEq (1,080 mg) tablet,extended release 10 meq PO BID Electrolyte Repletion 10/14/24
tamsulosin 0.4 mg capsule 0.4 mg PO HS #30 caps 10/15/24
ibuprofen 200 mg tablet (Advil) 400 mg PO Q8HPRN PRN mild pain 10/23/24
Review of Systems
-
History Source: Patient
Constitutional: Reports Fever and Chills
EENT: Reports No Symptoms
Respiratory: Reports No Symptoms
Cardiac: Reports No Symptoms
Abdomen/GI: Reports No Symptoms
: Reports No Symptoms
Musculoskeletal: Reports No Symptoms
Skin: Reports No Symptoms
Neurological: Reports No Symptoms
Endocrine: Reports No Symptoms
Hematologic/Lymphatic: Reports No Symptoms
Psych: Reports No Symptoms
Physical Exam
Vital Signs
Vital Signs
Temp Pulse Resp BP Pulse Ox
100.4 F H 110 22 159/69 97
10/23/24 08:13 10/23/24 06:15 10/23/24 06:15 10/23/24 08:08 10/23/24 08:12
Physical Exam
General: No Apparent Distress and Comfortable
HEENT: Moist mucous membranes
Respiratory: Clear; No Wheezes, Rales, Rhonchi or Crackles
Cardiac: S1/S2 and Regular Rhythm; No Murmur, Rub or Gallop
GI: Soft, Non Tender, Non Distended, Normal Bowel Sounds and Other
Genito-urinary: No costovertebral tender and Other (No suprapubic tenderness.)
Musculoskeletal: No Clubbing and No Edema
Skin: Warm
Neuro: AO x 3
Psych: Calm
Laboratory Results
-
10/23/24 07:02
10/23/24 07:02
Laboratory Results
Lactic Acid 1.2 mmol/L (0.7-2.0) 10/23/24 07:02
Total Bilirubin 0.8 mg/dl (0.2-1.3) 10/23/24 07:02
AST 23 U/L (14-36) 10/23/24 07:02
ALT 22 U/L (0-35) 10/23/24 07:02
Alkaline Phosphatase 56 U/L (38-126) 10/23/24 07:02
Data Reviewed
-
CT Scan: Image Personally Visualized and interpreted, Report Reviewed by me and Discussed with Physician
Lab Data: Labs Reviewed by me and Discussed with Physician
Impression/Plan
-
IMPRESSION: 59-year-old female with PMHx significant for bilateral recurrent ureteral calculi s/p ureteral stenting x 2, chronic pain syndrome presented to the hospital in sepsis.
PLAN:
Sepsis -
Tachycardia, tachypnea, leukocytosis, elevated temperatures.
SIRS criteria positive.
Likely secondary to urinary tract infection versus hydronephrosis.
Patient pulled her ureteral stents as they were not working.
lactic acid levels at 1.2, No respiratory symptoms.
Admit to telemetry. Urology consulted, urology planning for ureteral stent placement in the noon.
N.p.o. beginning AM. Urine analysis showed copious amounts of red blood cells, no leuk esterase or nitrates, no WBCs.
Did not reflex to cultures, ordered urine culture separately.
IV ceftriaxone.
Most recent HbA1c-
Hold glimepiride.
Resumes diet in the p.m after the procedure.
Lantus dose in the p.m., add sliding scale.
Gout-
Continue allopurinol.
History of fibromyalgia-
Continue home medications-duloxetine and Lyrica.
On prednisone, stress dose prednisone to 3 mg twice a day.
Hold hydroxychloroquine-increased risk of complicated UTI.
Hyperlipidemia-
On rosuvastatin.
DVT prophylaxis-
Sequential compression device.
CODE STATUS full code
Healthcare power of workers compensation attorney- Eliezer, has living will.
[2024-10-23 10:52] LABS: Urine Amorphous Seen; Urine Squamous Cell 0-2 /LPF (Few)
[2024-10-23 10:53] LABS: Urine Red Blood Cell 60-70 /HPF (0-2)
[2024-10-23 10:54] LABS: Urine White Cell 0-2 /HPF (0-5)
[2024-10-23 10:55] LABS: Urine Bacteria Few (Negative)
--- NOTE | 2024-10-23 12:36 | W.IMMPOSTOP ---
Surgical Immed Post Op Note
-
Primary Surgeon:
val
Assisting Surgeon:
Pre-op Diagnosis:
bilateral hydro/UTI
Post-op Diagnosis:
same
Procedure Performed:
cysto/bilateral ureteral stents
Anesthesia Type:
gen
Specimen / Cultures:
none
Estimated Blood Loss:
1cc
Complications:
none
Operative Findings:
nl appearing bladder
bilateral stents placed- NO sig purulent drainage from kidneys
marquis also placed
to PACU in stable condition
[2024-10-23 12:48] LABS: Glucose - Point of Care 77 mg/dl (70-99)
[2024-10-23] MEDS: STERILE WATER FOR INJECTION 10 ML IV (14:55)
[2024-10-23] MEDS: ROCEPHIN 1000 MG IV (14:55)
--- NOTE | 2024-10-23 15:16 | PTCARENOTE ---
pt new admit from OR s/p cysto/bilateral ureteral stent placement. pt is AAO*3, Vss, room air. pt denies any pain. c/o urethral burning. pt is in regular diet. pt oriented to the room. call berrios within the reach. plan of care ongoing.
[2024-10-23] MEDS: CYMBALTA DELAYED RELEASE 30 MG PO (17:15)
[2024-10-23 17:26] LABS: Glucose - Point of Care 260 mg/dl (70-99)
[2024-10-23] MEDS: UROCIT-K 10 MEQ PO (19:35)
[2024-10-23] MEDS: LYRICA 25 MG PO (19:35)
[2024-10-23] MEDS: DELTASONE PO (19:52)
[2024-10-23 21:43] LABS: Glucose - Point of Care 268 mg/dl (70-99)
[2024-10-23] MEDS: ZYLOPRIM 300 MG PO (22:24)
[2024-10-23] MEDS: LANTUS 0.13 UNITS SC (22:24)
[2024-10-23] MEDS: FLOMAX 0.4 MG PO (22:24)
[2024-10-24] MEDS: NSS 1000 IV ×2 (00:50→10:32)
[2024-10-24 03:50] VITALS: BP 122/62
[2024-10-24 07:04] LABS: Glucose - Point of Care 148 mg/dl (70-99)
[2024-10-24 07:05] VITALS: BP 119/62
[2024-10-24 07:32] LABS: % Basophils 0.1 % (0-2); % Immature Granulocytes 0.6 % (0-0.5); % Lymphocytes 5.3 % (20.5-51.1); % Monocytes 5.1 % (1.7-9.3); % Neutrophils 88.9 % (42.2-75.2); Absolute Immature Granulocytes 0.1 10^3/uL (0-0.05); Absolute Lymphocytes 0.9 10^3/uL (1.2-3.4); Absolute Monocytes 0.8 10^3/uL (0.1-0.6); Absolute Neutrophils 14.5 10^3/uL (1.4-6.5); Hematocrit 30.9 % (37.0-47.0); Hemoglobin 10.5 g/dL (12.0-16.0); Mean Corpuscular Hgb 31.2 pg (27.0-31.0); Mean Corpuscular Volume 91.7 fL (81.0-99.0); Mean Platelet Volume 10.7 fL (7.4-10.4); Nucleated Red Blood Cells % 0 %; Platelet Count 153 10^3/uL (130-400); Red Blood Cell Count 3.37 10^6/uL (4.20-5.40); White Blood Cell Count 16.3 10^3/uL (4.8-10.8)
[2024-10-24] MEDS: NOVOLOG FLEXPEN-LOW RESISTANCE SC ×2 (07:48→12:28)
[2024-10-24 07:57] LABS: Blood Urea Nitrogen 15 mg/dl (7-17); Calcium 8.5 mg/dl (8.4-10.2); Carbon Dioxide 21 mmol/L (22-30); Chloride 113 mmol/L (98-107); Estimated Creatinine Clearance 106 ml/min; Glucose 138 mg/dl (70-99); Potassium 3.9 mmol/L (3.5-5.1); Sodium 143 mmol/L (135-145); eGFR > 60.00
[2024-10-24] MEDS: DELTASONE 3 MG PO ×2 (08:54→20:20)
[2024-10-24] MEDS: LYRICA 25 MG PO ×2 (08:56→20:21)
[2024-10-24] MEDS: UROCIT-K 10 MEQ PO ×2 (08:56→20:21)
[2024-10-24] MEDS: VISBIOME 1 CAP PO (08:56)
--- NOTE | 2024-10-24 08:57 | W.PN.HOSP.TC ---
Addendum entered and electronically signed by Bonilla Clark MD 10/24/24 20:57:
Attending Addendum-
I saw and evaluated the patient. I reviewed the resident�s note and agree with findings and plan as documented in the resident�s note. Sub: Feels greatly improved. Patient denies fevers chills hematuria or dysuria. Full 12 point ROS reviewed and
negative except as documented Exam- vitals reviewed in EMR GEN-NAD Heart RRR Lungs clear abd soft LE no edema marquis in place draining clear yellow urine
Plan:
# Sepsis secondary to enterococcal UTI + bacteremia
- 10/14-laser litho, stone extraction, and double J stent placement
- 10/21- double J stent exchange->had incontinence and advised to pull stents out (string)
- 10/23-Cystoscopy and bilateral ureteral stent insertion with marquis placed- POD #2
- blood cx x 1 and urine cx - enterococcus- sensi pending
- blood cx x 1 NGTD
- repeat blood cx x 2
- change Rocephin ->ampicillin day #2 abx
- ID and Uro input appreciated
- TOV in am
# Essential hypertension - hydrochlorothiazide recently dcd
# Hyperlipidemia- continue rosuvastatin
# DM II - AccuCheck AC & HS- SSI- continue insulin - hold glimepiride
# Gout- continue allopurinol
# Autoimmune arthropathy- resume previous home dose steroids, restart HCQ
# Fibromyalgia- cont lyrica and cymbalta
# LILIAN - CPAP at night
# Chronic myelocytic leukemia--followed by Dr. Acuña at the [facility]--currently in remission
Code status full code
DVT proph--SCDs
Time spent coordinating care, review of plan of care with resident, personally reviewed records in EMR, med rec, consults, notes, labs, radiology, d/w nursing � 51 mins
Original Note:
Today's Communication/Plan
-
ID consulted, pending ID input.
Continue IV ceftriaxone.
Continue blood glucose monitoring and Lantus.
Follow-up closely with cultures.
Assessment / Plan
Assessment / Plan
Ynggdulfrf-18-qiom-old female with PMHx significant for bilateral recurrent ureteral calculi s/p ureteral stenting x 2, chronic pain syndrome presented to the hospital in sepsis.
Plan-
Sepsis -
Tachycardia, tachypnea, leukocytosis, elevated temperatures.
SIRS criteria resolved.
Leukocytosis trending up with left shift.-16 today.
Likely secondary to urinary tract infection versus hydronephrosis.
Patient pulled her ureteral stents as they were not working.
Blood cultures x 2 obtained from different sites-1 culture showed gram-positive cocci the second culture showed no growth.
S/p bilateral ureteral stent placement on 10/24/2024. Currently with indwelling Marquis catheter.
N.p.o. beginning AM. Urine analysis showed copious amounts of red blood cells, no leuk esterase or nitrates, no WBCs.
Did not reflex to cultures, ordered urine culture separately.
IV ceftriaxone-day 2 of antibiotics (day 1 of ceftriaxone).
ID consulted, evaluation pending, appreciate ID inputs
Most recent HbA1c-
Hold glimepiride.
Resumes diet in the p.m after the procedure.
Lantus dose in the p.m., add sliding scale.
Gout-
Continue allopurinol.
Patient has no history of hypertension.
HCTZ was initially started for her nephrolithiasis but was discontinued by urology in early September.
History of fibromyalgia-
Continue home medications-duloxetine and Lyrica.
On prednisone, stress dose prednisone to 3 mg twice a day.
Hold hydroxychloroquine-increased risk of complicated UTI.
Hyperlipidemia-
On rosuvastatin.
DVT prophylaxis-
Sequential compression device.
CODE STATUS full code
Anticipated Discharge: 24 - 48 hours
Subjective/Interval History
-
Date of Service: October 24, 2024
No bowel movement in 1 week.
Tolerating oral feeds well, blood sugars well-controlled overnight, no nausea no emesis no abdominal pain suprapubic pain or flank pain.
Objective Data
-
Labs:
Laboratory Results
10/24/24
06:43
WBC 16.3 H
Hgb 10.5 L
Hct 30.9 L
Plt Count 153
Sodium 143
Potassium 3.9
Chloride 113 H
Carbon Dioxide 21 L
BUN 15
Creatinine 0.6
Glucose 138 H
Calcium 8.5
Vital Signs:
Vital Signs
Temp Pulse Resp BP Pulse Ox
98.3 F 64 16 119/62 95
10/24/24 07:05 10/24/24 07:05 10/24/24 07:05 10/24/24 07:05 10/24/24 07:05
I&O
10/23/24 10/24/24 10/25/24
06:59 06:59 06:59
Intake Total 1160 / 1160
Output Total 3000 / 3000
Balance -1840 / -1840
Review of Systems
-
History Source: Patient
Constitutional: Reports No Symptoms
Respiratory: Reports No Symptoms
Cardiac: Reports No Symptoms
Abdomen/GI: Reports No Symptoms
Genitourinary: Reports No Symptoms
Musculoskeletal: Reports No Symptoms
Neuro: Reports No Symptoms
Endocrine: Reports No Symptoms
Hematologic / Lymphatic: Reports No Symptoms
Allergy / Immunology: Reports No Symptoms
Physical Exam
-
General: No Apparent Distress and Comfortable
HEENT: Moist Mucous Membranes and Cade Conjunctivae
Respiratory: Clear to Auscultation; Negative Wheezes, Rales, Rhonchi or Crackles
Cardiac: Regular Rhythm and S1/S2; Negative Murmur, Rub or Gallop
GI: Soft, Nontender, Nondistended and Normal Bowel Sounds
Genito-urinary: No Costovertebral Tender, Clear Urine and Marquis
Musculoskeletal: No Clubbing, No Cyanosis and No Edema
Skin: Warm
Neuro: AO x 3
Psych: Calm
Data Reviewed
-
Medical Tests (Nuc Med, Echo etc): Image personally visualized and interpreted and Report Reviewed by me
Labs: Labs Reviewed by me, Discussed with Physician and Discussed with Nurse
[2024-10-24] MEDS: SENOKOT-S 1 TABLET PO (09:02)
[2024-10-24] MEDS: MIRALAX 17 GRAMS PO (09:02)
--- NOTE | 2024-10-24 10:03 | W.PN.URO.CBU ---
Today's Communication / Plan
-
continue marquis/stents/antibx
Assessment / Plan
-
nephrolithiasis with recent 2 stage bilateral ureteroscopy
UTI/bacteremia
hydro
stable after stent re-insertion
on antibx- cx's pending
remove marquis tomorrow
will follow
Diagnosis
-
Date of Service: October 24, 2024
-
Patient Diagnosis:
nephrolithiasis
hydronephrosis
UTI
Post Op Day:
bilateral stent re-insertion 10/23
Subjective
-
pt feels better
urine clear
wbc up
blood cx's +
Objective
-
Vital Signs
Temp Pulse Resp BP Pulse Ox
98.3 F 64 16 119/62 95
10/24/24 07:05 10/24/24 07:05 10/24/24 07:05 10/24/24 07:05 10/24/24 07:05
Intake and Output
10/23/24 10/24/24 10/25/24
06:59 06:59 06:59
Intake Total 1160 / 1160
Output Total 3000 / 3000
Balance -1840 / -1840
Intake:
Oral fluids 960 / 960
IV fluids (Total) 200 / 200
NSS 200 / 200
Output:
Urine, Marquis 3000 / 3000
Laboratory Results
10/24/24 06:43
10/24/24 06:43
Review of Systems
-
Constitutional: Fatigue
Respiratory: No Symptoms
Cardiac: No Symptoms
Abdomen/GI: No Symptoms
Physical Exam
-
General - no acute distress
Abdomen - soft, non-tender
Genitalia - marquis in place
[2024-10-24 11:08] VITALS: BP 116/57
[2024-10-24 11:49] LABS: Glucose - Point of Care 158 mg/dl (70-99)
[2024-10-24] MEDS: STERILE WATER FOR INJECTION 10 ML IV (13:15)
[2024-10-24] MEDS: ROCEPHIN 1000 MG IV (13:15)
--- NOTE | 2024-10-24 14:07 | CON.ID ---
Addendum entered and electronically signed by Cheri Croft MD 10/24/24 17:27:
I personally performed a history and physical exam of the patient and discussed management with the resident. I reviewed the resident's note and agree with the documented findings and plan of care HPI/CC with the following additions/corrections:
HPI:
Ms Washington is a 59 year old female with history of recurrent renal stones despite medical management, fibromyalgias DM2 who presented here 10/23 for chills and rigors with recent hospitalization for bilateral obstructing renal stones. 10/14 she
underwetn ureteroscopy, laser lithrotripsy, bilateral stone extraction and double J stent placement. She returned to the OR two days ago, 10/21 and she underwent further lithotripsy, stone extraction and bilateral stent exchange. Outpatient she was
having 'severe incontinence' and she was instructed to remove the stents. Then yesterday she developed rigors which prompted her to return to the ER. She was taken to the OR same day for cysto and bilateral stent placement; there was no stone,
tumor or mass and no purulent urine draining from either side. She had blood cultures one set with enterococcus and urine culture with 100K enterococcus. She was initially started on ceftriaxone and once enterococcus was IDd I changed her from
ceftriaxone to ampicillin. ID is consulted for assistance with management.
Physical Exam
General: No Apparent Distress
Respiratory: Clear; No Wheezes, Rales, Rhonchi or Crackles
Cardiac: S1/S2 and Regular Rhythm; No Murmur, Rub or Gallop
GI: Soft, Non Tender, Non Distended, Normal Bowel Sounds and Other
Genito-urinary: Mild costovertebral tenderness and no suprapubic tenderness
Skin: Warm
Labs Reviewed:
one of two sets of blood cultures: E faecalis
urine culture 100K E faecalis
A&P:
Recurrent Renal Stones despite Medical therapy
Complicated UTI
Bacteremia
- blood cultures - 1 set E faecalis - source is urine
- repeat blood cultures x2
- urine culture 100K E faecalis
- start ampicillin stop ceftriaxone
- no need to hold plaquenil or prednisone 3 mg po BID from ID perspective, these are minimally immunosuppressive
- follow clinically
Original Note:
Consultation
-
Date/Time Consultation Requested: 10/24/2024 12:48
Date/Time Consultation Performed: 10/24/2024 14:40
Requesting Provider: Mary Pena MD
Performing Provider: Cheri Croft MD
Reason for Consultation: Ambiguous blood culture.
Chief Complaint / Past History
Chief Complaint
Sepsis from urinary tract manipulation
History of Present Illness
Ms. Washington is a 59-year-old female with PMH of DM type II, CML, HTN, hyperlipidemia, bilateral hydronephrosis secondary to obstructing ureteral calculi who presented to the ED on 10/23/2024 with fever, rigors and chills. She initially presented on
10/14/2024 with bilateral ureteral obstruction s/p lithotripsy and bilateral double-J ureteral stents placed. She returned to the OR on 10/21 and underwent another successful bilateral ureteroscopy with removal of bilateral stone burden with
placement of bilateral ureteral stents (Dr. York). Unfortunately, She started having lots of urine leakage, and she was asked to removed them herself which she did on the same day. She was well until she stared having Rigors, fever and chills
yesterday, necessitating her return to the ED.
While in the ED, she had a temperature of 38.6 C, pulse 110, respiratory 22 saturating at 95% on room air.
Patient was taken to the OR and underwent cystoscopy with bilateral ureteral stent insertion (Dr. Tavarez) on 10/23/2024. She is currently doing well, reports no abdominal pain, flank pain, fever, chills, dysuria or suprapubic tenderness.
Past History
Past Medical History: Cancer (CML), HTN, Hypercholesterolemia, NIDDM and Other (bilateral recurrent obstructive ureteral calculi, IBS, fibromyalgia, MDD, diverticulosis)
Past Surgical History: Other (Bilateral ureteral stents, )
Allergy History:
No Known Allergies Allergy (Verified 10/21/24 08:25)
Medications Reviewed: Yes
Social History
Tobacco: Non-Smoker
Alcohol: None
Drug: None
Family History
Family History: Not Pertinent
Review of Systems
Review of Systems
General: Negative Fever, Chills or Change in Appetite
HEENT: Negative Lymphadenopathy, Stiff Neck or Sinus Problems
Cardiovascular: Negative Chest Pain, Dyspnea, Edema or Palpitations
Respiratory: Negative Dyspnea, Cough or Cyanosis
Gasteroenterology: Negative Weight Loss, Nausea or Vomiting
Genital / Urological: Negative Dysuria, Hematuria or Stones
Musculoskeletal: Negative Joint Pain or Joint Swelling
Skin / Hair / Nails: Negative Urticaria, Rash, Lesions or Nail Changes
Neurological: Negative Headache or Dizziness
Psychological: Depression
All systems: All other systems were reviewed and were negative
Vital Signs
Temp Pulse Resp BP Pulse Ox
98.1 F 72 18 116/57 96
10/24/24 11:08 10/24/24 11:08 10/24/24 11:08 10/24/24 11:08 10/24/24 11:08
Physical Exam
Physical Exam
Constitutional: No Acute Distress and Comfortable
Eyes: Sclera Anicteric
Cardiovascular: Regular Rate and S1/S2; Negative Murmur or Rub
Pulmonary: Clear and Symmetric; Negative Wheezes, Rales or Rhonchi
Gastrointestinal: Soft, Non Tender, Non Distended and Normal Bowel Sounds
Genito-Urinary: Degroot (Draining yellowish urine) and Clear Urine; Negative CVA Tenderness
Extremities: Negative Edema or Calf Swelling
Musculoskeletal: Negative Joint Swelling or Joint Effusion
Skin: Warm and Dry; Negative Rash or Jaundice
Wound: None
Neurological: Awake and AO x 3
Psychological: Calm
Lab / Diagnostic Study Results
10/24/24 06:43
10/24/24 06:43
Abs Immat Gran (auto) 0.1 10^3/uL (0-0.05) H 10/24/24 06:43
Absolute Neuts (auto) 14.5 10^3/uL (1.4-6.5) H 10/24/24 06:43
Absolute Lymphs (auto) 0.9 10^3/uL (1.2-3.4) L 10/24/24 06:43
Absolute Monos (auto) 0.8 10^3/uL (0.1-0.6) H 10/24/24 06:43
Absolute Basos (auto) 0.0 10^3/uL (0-0.2) 10/24/24 06:43
Immature Gran % 0.6 % (0-0.5) H 10/24/24 06:43
Neutrophils % 88.9 % (42.2-75.2) H 10/24/24 06:43
Lymphocytes % 5.3 % (20.5-51.1) L 10/24/24 06:43
Monocytes % 5.1 % (1.7-9.3) 10/24/24 06:43
Eosinophils % 0.0 % (0-6) 10/24/24 06:43
Basophils % 0.1 % (0-2) 10/24/24 06:43
Lactic Acid 1.2 mmol/L (0.7-2.0) 10/23/24 07:02
Ur Squamous Epith Cells 0-2 /LPF (Few) 10/23/24 08:10
Microbiology Results
Micro:
10/23/24 08:10 Urine Culture - Preliminary
Urine Enterococcus species
10/23/24 07:02 Blood Culture - Preliminary
Blood/Venous Enterococcus faecalis
Gram Stain - Preliminary
10/23/24 07:20 Blood Culture - Preliminary
Blood/Venous No Growth in 24 hours- Final report to follow
Assessment / Plan
59-year-old female with history of bilateral obstructing ureteral calculi and hydronephrosis who presented with fever, chills, rigors and underwent second ureteral stent placement 10/23/2024
Assessment/plan:
#Sepsis suspected from UTI
Enterococcal bacteremia
#Ureteral instrumentation
#Hydronephrosis
- S/p cystoscopy with bilateral ureteral stent insertion (Dr. Tavarez) 10/23.
- WBC count 16.3 with left shift.
- Blood cultures 10/23 positive for Enterococcus faecalis 1 sets, second sets NGTD 24 hours.
- Urine culture 10/23 positive for Enterococcus species.
- Start ampicillin 2 g IV Q6H.
- Stop ceftriaxone.
- Follow cultures and sensitivity.
Care Review
Plan reviewed with: Physician
[2024-10-24 14:20] VITALS: BP 148/70; PULSE 62; O2SAT 96
[2024-10-24 15:23] VITALS: BP 133/72
[2024-10-24] MEDS: AMPICILLIN 108 MG IV ×2 (16:09→22:18)
[2024-10-24] MEDS: NSS IV (16:21)
[2024-10-24 17:02] LABS: Glucose - Point of Care 177 mg/dl (70-99)
[2024-10-24] MEDS: CYMBALTA DELAYED RELEASE 30 MG PO (17:20)
[2024-10-24] MEDS: NOVOLOG FLEXPEN-LOW RESISTANCE 1 UNITS SC (17:48)
[2024-10-24] MEDS: ZYLOPRIM 300 MG PO (20:22)
[2024-10-24] MEDS: FLOMAX 0.4 MG PO (20:23)
[2024-10-24 21:49] LABS: Glucose - Point of Care 134 mg/dl (70-99)
[2024-10-24] MEDS: TYLENOL 650 MG PO (22:17)
[2024-10-24] MEDS: LANTUS SC (22:25)
[2024-10-24] MEDS: LANTUS 0.06 UNITS SC (22:33)
[2024-10-24 23:52] VITALS: BP 149/68
[2024-10-25 00:50] VITALS: PULSE 70
[2024-10-25] MEDS: AMPICILLIN 108 MG IV ×4 (04:20→21:24)
[2024-10-25 07:11] LABS: % Basophils 0.3 % (0-2); % Eosinophils 0.5 % (0-6); % Immature Granulocytes 0.7 % (0-0.5); % Lymphocytes 19.4 % (20.5-51.1); % Neutrophils 74.1 % (42.2-75.2); Absolute Eosinophils 0.1 10^3/uL (0-0.7); Absolute Immature Granulocytes 0.1 10^3/uL (0-0.05); Absolute Lymphocytes 2.1 10^3/uL (1.2-3.4); Absolute Monocytes 0.5 10^3/uL (0.1-0.6); Absolute Neutrophils 7.9 10^3/uL (1.4-6.5); Hematocrit 31.2 % (37.0-47.0); Hemoglobin 10.3 g/dL (12.0-16.0); Mean Corpuscular Hgb 30.4 pg (27.0-31.0); Mean Platelet Volume 10.6 fL (7.4-10.4); Nucleated Red Blood Cells % 0 %; Platelet Count 169 10^3/uL (130-400); Red Blood Cell Count 3.39 10^6/uL (4.20-5.40); Red Cell Dist. Width 13.1 % (11.5-14.5); White Blood Cell Count 10.6 10^3/uL (4.8-10.8)
[2024-10-25 08:08] LABS: Blood Urea Nitrogen 16 mg/dl (7-17); Calcium 8.8 mg/dl (8.4-10.2); Carbon Dioxide 26 mmol/L (22-30); Chloride 112 mmol/L (98-107); Estimated Creatinine Clearance 91 ml/min; Glucose 95 mg/dl (70-99); Potassium 4.3 mmol/L (3.5-5.1); Sodium 144 mmol/L (135-145); eGFR > 60.00
[2024-10-25 08:19] LABS: Glucose - Point of Care 81 mg/dl (70-99)
[2024-10-25 08:29] VITALS: BP 143/62
[2024-10-25 08:29] LABS: Iron 57 ug/dl (37-170)
[2024-10-25] MEDS: UROCIT-K 10 MEQ PO ×2 (08:35→20:28)
[2024-10-25] MEDS: NOVOLOG FLEXPEN-LOW RESISTANCE SC ×2 (08:35→12:00)
[2024-10-25] MEDS: DELTASONE 3 MG PO (08:35)
[2024-10-25] MEDS: LYRICA 25 MG PO ×2 (08:36→20:28)
[2024-10-25] MEDS: PLAQUENIL 200 MG PO ×2 (08:36→20:28)
[2024-10-25] MEDS: VISBIOME 1 CAP PO (08:36)
[2024-10-25 08:38] LABS: Percent Saturation 22 % (20-50); Total Iron Binding Capacity 256 ug/dl (265-497)
--- NOTE | 2024-10-25 08:43 | PTCARENOTE ---
Pt. voided 200 ml clear yellow urine without difficulty at 0830, s/p Degroot catheter removal this AM.
[2024-10-25 09:36] LABS: Vitamin B12 757 pg/ml (239-931)
[2024-10-25 11:53] LABS: Glucose - Point of Care 137 mg/dl (70-99)
--- NOTE | 2024-10-25 13:14 | W.PN.HOSP.TC ---
Today's Communication/Plan
-
Antibiotics
Await CX
Assessment / Plan
Assessment / Plan
59-year-old with rigors and chills
CVS: S1-S2 normal
Chest: CTA B/L
Abdomen: Soft, NT / Bowel sounds present
Extremities: No edema
# Sepsis secondary to urinary tract manipulation/UTI
Status post LASEK lithotripsy, stone fragmentation and double-J stent placement on 10/14/2024-Dr. Dong
Bilateral ureteroscopy, renoscopy with laser lithotripsy of the remaining stone burden stent exchanged on 10/21/2024 Dr. York. Because of patient's stent intolerance bilateral stents with strings. She had incontinence therefore stents attached to
the strings were removed.
Patient had more symptoms and came back to the ER underwent, cystoscopy, bilateral ureteral stent insertion on 10/23/[address] Tavarez
Continue Ampicillin
White count better
Blood cultures and urine cultures with Enterococcus faecalis
Continue ampicillin
Repeat urine culture pending
# Anemia-likely secondary to acute blood loss secondary to procedures
# Hyperlipidemia-continue statin
# Diabetes-continue Lantus, Accu-Cheks and sliding scale coverage. Holding glimepiride, if sugars trend up we will start.
# Gout-continue allopurinol
# Inflammatory arthritis-restart Plaquenil, and continue prednisone
# Fibromyalgia-continue Cymbalta and Lyrica
# Sleep apnea-continue CPAP
# CML followed by Dr. Acuña at [facility] in [place] currently in remission
# L4-5 herniated disc
# Obesity
# DVT prophylaxis-SCDs
# Full code
D/W RN at bed side.
Part of this note was created using voice recognition system. Occasional wrong word or��sound alike� substitutions may have inadvertently occurred due to the inherent limitations of voice recognition software. If noted kindly bring it to my
attention for correction.
Anticipated Discharge: 24 - 48 hours
Subjective/Interval History
-
Date of Service: October 25, 2024
Objective Data
-
Labs:
Laboratory Results
10/25/24
06:10
WBC 10.6
Hgb 10.3 L
Hct 31.2 L
Plt Count 169
Sodium 144
Potassium 4.3
Chloride 112 H
Carbon Dioxide 26
BUN 16
Creatinine 0.7
Glucose 95
Calcium 8.8
Vital Signs:
Vital Signs
Temp Pulse Resp BP Pulse Ox
98.2 F 68 18 143/62 95
10/25/24 08:29 10/25/24 08:29 10/25/24 08:29 10/25/24 08:29 10/25/24 08:29
I&O
10/24/24 10/25/24 10/26/24
06:59 06:59 06:59
Intake Total 1160 / 1160 1876 / 1876
Output Total 3000 / 3000 3025 / 3025 200 / 200
Balance -1840 / -1840 -1149 / -1149 -200 / -200
--- NOTE | 2024-10-25 13:22 | W.PN.URO.CBU ---
Today's Communication / Plan
-
marquis out home after completion iv abs for bacteremia
Assessment / Plan
-
nephrolithiasis with recent 2 stage bilateral ureteroscopy
UTI/bacteremia
hydro
stable after stent re-insertion
on antibx- cx's pending
remove marquis tomorrow
will follow
Diagnosis
-
Date of Service: October 25, 2024
-
Patient Diagnosis:
Post Op Day:
Patient Diagnosis:
nephrolithiasis
hydronephrosis
UTI
Post Op Day:
bilateral stent re-insertion 10/23
Subjective
-
feels well
Objective
-
Vital Signs
Temp Pulse Resp BP Pulse Ox
98.2 F 68 18 143/62 95
10/25/24 08:29 10/25/24 08:29 10/25/24 08:29 10/25/24 08:29 10/25/24 08:29
Intake and Output
10/24/24 10/25/24 10/26/24
06:59 06:59 06:59
Intake Total 1160 / 1160 1876 / 1876
Output Total 3000 / 3000 3025 / 3025 200 / 200
Balance -1840 / -1840 -1149 / -1149 -200 / -200
Intake:
Oral fluids 960 / 960 700 / 700
IV fluids (Total) 200 / 200 960 / 960
NSS 200 / 200
IV piggybacks 216 / 216
Output:
Urine, Marquis 3000 / 3000 3025 / 3025
Urine, Voided 200 / 200
Other:
Number of approximated MODERATE 2
amounts of urine
Laboratory Results
10/25/24 06:10
10/25/24 06:10
Review of Systems
-
: Dysuria and Urgency
Physical Exam
-
General - well developed, well nourished, no acute distress
Chest - clear bilaterally
Abdomen - soft, non-tender, positive bowel sounds, no CVAT, no incisional pain or distention
Genitalia - normal
Rectal - normal
Skin - warm & dry with no rash
Neuro - AOx3, no motor deficits
Extremities - no clubbing, no cyanosis, no edema
Incision - clean, dry
Dressing - clean, dry, intact
Care Review
Data Reviewed
Discussed with: Nursing
[2024-10-25 16:27] VITALS: BP 133/67
--- NOTE | 2024-10-25 16:36 | CM ---
Alert awake oriented patient who lives with her Eliezer in a 1 story home with 0 steps to enter. She is independent in activates of daily living.She does drive .She used a walker and CPAP.
No VN in past . No SNF hx
Pharmacy [facility]
PCP Dr Rao
PLAN Home with no needs
[2024-10-25] MEDS: CYMBALTA DELAYED RELEASE 30 MG PO (17:07)
[2024-10-25] MEDS: NOVOLOG FLEXPEN-LOW RESISTANCE 1 UNITS SC (17:10)
[2024-10-25 17:11] LABS: Glucose - Point of Care 167 mg/dl (70-99)
[2024-10-25] MEDS: FLOMAX 0.4 MG PO (20:29)
[2024-10-25] MEDS: ZYLOPRIM 300 MG PO (20:29)
[2024-10-25 21:28] LABS: Glucose - Point of Care 101 mg/dl (70-99)
[2024-10-25] MEDS: LANTUS SC (22:29)
[2024-10-25 23:30] VITALS: PULSE 70
[2024-10-25 23:55] VITALS: BP 147/65
[2024-10-26] MEDS: AMPICILLIN 108 MG IV ×4 (04:55→20:59)
[2024-10-26 06:29] LABS: Hematocrit 32.6 % (37.0-47.0); Hemoglobin 11.1 g/dL (12.0-16.0); Mean Corpuscular Hgb 30.5 pg (27.0-31.0); Mean Corpuscular Volume 89.6 fL (81.0-99.0); Mean Platelet Volume 9.9 fL (7.4-10.4); Platelet Count 177 10^3/uL (130-400); Red Blood Cell Count 3.64 10^6/uL (4.20-5.40); Red Cell Dist. Width 12.7 % (11.5-14.5); White Blood Cell Count 7.7 10^3/uL (4.8-10.8)
[2024-10-26 06:54] LABS: Blood Urea Nitrogen 14 mg/dl (7-17); Calcium 8.9 mg/dl (8.4-10.2); Carbon Dioxide 23 mmol/L (22-30); Chloride 107 mmol/L (98-107); Estimated Creatinine Clearance 91 ml/min; Glucose 111 mg/dl (70-99); Potassium 3.4 mmol/L (3.5-5.1); Sodium 143 mmol/L (135-145); eGFR > 60.00
[2024-10-26 07:24] LABS: Glucose - Point of Care 113 mg/dl (70-99)
[2024-10-26 07:40] VITALS: BP 149/72
[2024-10-26] MEDS: NOVOLOG FLEXPEN-LOW RESISTANCE SC (07:56)
[2024-10-26] MEDS: DELTASONE 3 MG PO (08:47)
[2024-10-26] MEDS: VISBIOME 1 CAP PO (08:48)
[2024-10-26] MEDS: PLAQUENIL 200 MG PO ×2 (08:48→20:58)
[2024-10-26] MEDS: UROCIT-K 10 MEQ PO ×2 (08:48→20:58)
[2024-10-26] MEDS: LYRICA 25 MG PO ×2 (08:48→20:58)
[2024-10-26] MEDS: CRESTOR 5 MG PO (08:55)
--- NOTE | 2024-10-26 11:17 | W.PN.URO.CBU ---
Today's Communication / Plan
-
PLAN PER HOSPITALIST
Assessment / Plan
-
nephrolithiasis with recent 2 stage bilateral ureteroscopy
UTI/bacteremia
hydro
stable after stent re-insertion
will follow BUT HOSPITALIST TO DETEMINE LENGTH OF UIV ABS
Diagnosis
-
Date of Service: October 26, 2024
-
Patient Diagnosis:
Post Op Day:
Patient Diagnosis:
Post Op Day:
Patient Diagnosis:
nephrolithiasis
hydronephrosis
UTI
Post Op Day:
bilateral stent re-insertion 10/23
Subjective
-
AFEBRILE FEELS BASELINE
Objective
-
Vital Signs
Temp Pulse Resp BP Pulse Ox
98.1 F 67 16 149/72 97
10/26/24 07:40 10/26/24 07:40 10/26/24 07:40 10/26/24 07:40 10/26/24 08:45
Intake and Output
10/25/24 10/26/24 10/27/24
06:59 06:59 06:59
Intake Total 1876 / 1876 200 / 200 360 / 360
Output Total 3025 / 3025 3475 / 3475
Balance -1149 / -1149 -3275 / -3275 360 / 360
Intake:
Oral fluids 700 / 700 360 / 360
IV fluids (Total) 960 / 960 200 / 200
IV piggybacks 216 / 216
Output:
Urine, Degroot 3025 / 3025
Urine, Voided 3475 / 3475
Other:
Number of approximated MODERATE 5 1
amounts of urine
Laboratory Results
10/26/24 05:52
10/26/24 05:52
Review of Systems
-
: Frequency
Physical Exam
-
General - well developed, well nourished, no acute distress
Chest - clear bilaterally
Abdomen - soft, non-tender, positive bowel sounds, no CVAT, no incisional pain or distention
Genitalia - normal
Rectal - normal
Skin - warm & dry with no rash
Neuro - AOx3, no motor deficits
Extremities - no clubbing, no cyanosis, no edema
Incision - clean, dry
Dressing - clean, dry, intact
[2024-10-26 11:49] LABS: Glucose - Point of Care 165 mg/dl (70-99)
[2024-10-26] MEDS: NOVOLOG FLEXPEN-LOW RESISTANCE 1 UNITS SC (12:10)
[2024-10-26 15:18] VITALS: BP 160/76
[2024-10-26] MEDS: KCL 40 MEQ PO (15:42)
[2024-10-26 16:46] LABS: Glucose - Point of Care 206 mg/dl (70-99)
[2024-10-26] MEDS: NOVOLOG FLEXPEN-LOW RESISTANCE 2 UNITS SC (17:18)
--- NOTE | 2024-10-26 17:19 | W.PN.HOSP.TC ---
Today's Communication/Plan
-
AB
Replace K
Follow CX
Assessment / Plan
Assessment / Plan
59-year-old with rigors and chills
CVS: S1-S2 normal
Chest: CTA B/L
Abdomen: Soft, NT / Bowel sounds present
Extremities: No edema
# Sepsis secondary to urinary tract manipulation/UTI
Status post LASEK lithotripsy, stone fragmentation and double-J stent placement on 10/14/2024-Dr. Dong
Bilateral ureteroscopy, renoscopy with laser lithotripsy of the remaining stone burden stent exchanged on 10/21/2024 Dr. York. Because of patient's stent intolerance bilateral stents with strings. She had incontinence therefore stents attached to
the strings were removed.
Patient had more symptoms and came back to the ER underwent, cystoscopy, bilateral ureteral stent insertion on 10/23/[address] Tavarez
Continue Ampicillin
White count better
Blood cultures and urine cultures with Enterococcus faecalis
Repeat urine culture neg so far. Follow another day
# Anemia-likely secondary to acute blood loss secondary to procedures
# Hypokalemia-replace
# Hyperlipidemia-continue statin
# Diabetes-continue Lantus, Accu-Cheks and sliding scale coverage. Restart Glimepiride.
# Gout-continue allopurinol
# Inflammatory arthritis-restart Plaquenil, and continue prednisone
# Fibromyalgia-continue Cymbalta and Lyrica
# Sleep apnea-continue CPAP
# CML followed by Dr. Acuña at [facility] in [place] currently in remission.
# L4-5 herniated disc
# Obesity
# DVT prophylaxis-Lovenox
# Full code
D/W RN at bed side.
D/W today
D/W Family at bed side
D/W ID- Watch here . No discharge today. Reasoning discussed with the pt.
Part of this note was created using voice recognition system. Occasional wrong word or��sound alike� substitutions may have inadvertently occurred due to the inherent limitations of voice recognition software. If noted kindly bring it to my
attention for correction.
Anticipated Discharge: Within 24 hours
Subjective/Interval History
-
Date of Service: October 26, 2024
Objective Data
-
Labs:
Laboratory Results
10/26/24
05:52
WBC 7.7
Hgb 11.1 L
Hct 32.6 L
Plt Count 177
Sodium 143
Potassium 3.4 L
Chloride 107
Carbon Dioxide 23
BUN 14
Creatinine 0.7
Glucose 111 H
Calcium 8.9
Vital Signs:
Vital Signs
Temp Pulse Resp BP Pulse Ox
97.9 F 61 18 160/76 99
10/26/24 15:18 10/26/24 15:18 10/26/24 15:18 10/26/24 15:18 10/26/24 15:18
I&O
10/25/24 10/26/24 10/27/24
06:59 06:59 06:59
Intake Total 1876 / 1876 200 / 200 1020 / 1020
Output Total 3025 / 3025 3475 / 3475
Balance -1149 / -1149 -3275 / -3275 1020 / 1020
[2024-10-26] MEDS: CYMBALTA DELAYED RELEASE 30 MG PO (17:26)
[2024-10-26] MEDS: AMARYL 2 MG PO (17:27)
--- NOTE | 2024-10-26 17:28 | PTCARENOTE ---
Pt is independent functioning, refused Lovenox. She has been OOB every 2 hours to void in the bathroom
[2024-10-26] MEDS: ZYLOPRIM 300 MG PO (20:58)
[2024-10-26] MEDS: FLOMAX 0.4 MG PO (20:59)
[2024-10-26 21:04] LABS: Glucose - Point of Care 132 mg/dl (70-99)
[2024-10-26] MEDS: LANTUS SC (21:05)
[2024-10-26 23:33] VITALS: BP 150/80
[2024-10-27] MEDS: AMPICILLIN 108 MG IV (03:29)
[2024-10-27 07:22] LABS: Glucose - Point of Care 136 mg/dl (70-99)
[2024-10-27 07:30] VITALS: BP 140/71
[2024-10-27 07:33] LABS: Hematocrit 34.2 % (37.0-47.0); Hemoglobin 11.5 g/dL (12.0-16.0); Mean Corp Hgb Conc. 33.6 g/dL (33.0-37.0); Mean Corpuscular Hgb 30.7 pg (27.0-31.0); Mean Corpuscular Volume 91.2 fL (81.0-99.0); Platelet Count 200 10^3/uL (130-400); Red Blood Cell Count 3.75 10^6/uL (4.20-5.40); Red Cell Dist. Width 12.7 % (11.5-14.5); White Blood Cell Count 7.1 10^3/uL (4.8-10.8)
--- NOTE | 2024-10-27 08:03 | W.PN.ID1 ---
Addendum entered and electronically signed by Cheri Croft MD 10/27/24 11:46:
I saw and evaluated the patient. I reviewed the resident�s note and agree with findings and plan as documented in the resident�s note with the following additions/corrections:
Subjective:
afebrile, bp stable
Physical Exam
General: No Apparent Distress
Respiratory: Clear; No Wheezes, Rales, Rhonchi or Crackles
Cardiac: S1/S2 and Regular Rhythm; No Murmur, Rub or Gallop
GI: Soft, Non Tender, Non Distended, Normal Bowel Sounds and Other
Genito-urinary: Mild costovertebral tenderness and no suprapubic tenderness
Skin: Warm
Labs Reviewed:
one of two sets of blood cultures: E faecalis
urine culture 100K E faecalis
10/24 blood cultures now no growth to date
Urine Culture Final 10/25/24-1333
CC: 100,000 CFU/ML Enterococcus faecalis
Organism 1 Enterococcus faecalis
1. Enterococcus faecalis
M.I.C. RX
--------- ---
Ampicillin <=2 S
Gentamicin Synergy Screen <=500 S
Susceptible result indicates synergy is likely with a cell
wall active agent that is also susceptible
(e.g.ampicillin,penicillin,vancomycin)
Levofloxacin <=1 S
Nitrofurantoin-Urine Only <=32 S
Tetracycline <=4 S
Vancomycin 2 S
A&P:
Recurrent Renal Stones despite Medical therapy
Complicated UTI
Bacteremia
- 10/24 blood cultures no growth to date
- blood cultures - 1 set E faecalis - source is urine
- repeat blood cultures x2
- urine culture 100K E faecalis
- start amoxicillin to complete 7 day total course 10/24-10/30
- no need to hold plaquenil or prednisone 3 mg po BID from ID perspective, these are minimally immunosuppressive
- stable for dc from ID perspective
Original Note:
Date of Service
Date of Service: October 27, 2024
Patient seen and examined at bedside, lying comfortably in bed in no acute distress. Patient has no acute complaints. Denies fever, chills, abdominal pain, flank pain, suprapubic or CVA tenderness. States that she is ready to go home.
Today's Communication
Overall doing okay.
Switch to amoxicillin 500 TID for 11 more days to complete course.
Stable for discharge from ID perspective.
Assessment / Plan
59-year-old female with history of bilateral obstructing ureteral calculi and hydronephrosis who presented with fever, chills, rigors s/p Laser lithotripsy and two-stage bilateral ureteroscopy with bilateral ureteral stent insertion 10/23/2024.
Assessment/plan:
#Sepsis suspected from UTI
Enterococcal bacteremia
#S/p cystoscopy with bilateral ureteral stent insertion (Dr. Tavarez) 10/23.
- Doing well.
- Degroot discontinued 10/25/2024.
- Leukocytosis resolved.
- Blood cultures 10/23 positive for Enterococcus faecalis 1/2 sets.
- Urine culture 10/23 with 100,000 Enterococcus faecalis.
- Repeat blood cultures 10/24, NGTD.
- Switch to Amoxicillin 500mg TID for 11 days to complete 14 days.
- Stable for discharge from ID standpoint.
Chief Complaint
-: Fever (Resolved), Leukocytosis (Resolved), UTI and Bacteremia
Subjective / Review of Systems
Review of Systems: No Fever, No Chills, No Headache, No Chest Pain, No Abdominal Pain, No Nausea, No Vomiting, No Diarrhea and No Joint Pain
Vital Signs / Physical Exam
Vital Signs
Vital Signs
Temp Pulse Resp BP Pulse Ox
97.5 F 72 16 150/80 99
10/26/24 23:33 10/26/24 23:33 10/26/24 23:33 10/26/24 23:33 10/26/24 23:33
Physical Exam
Constitutional: No Acute Distress and Comfortable
Cardiovascular: Regular Rate and S1/S2; Negative Murmur, Rub or Gallop
Pulmonary: Clear and Symmetric; Negative Wheezes, Rales or Rhonchi
Gastrointestinal: Soft, Non Tender, Non Distended and Normal Bowel Sounds
Genito-Urinary: Negative Degroot, Suprapubic Tenderness or CVA Tenderness
Extremities: Negative Edema or Calf Swelling
Skin: Warm and Dry; Negative Rash or Jaundice
Neurological: Awake and AO x 3
Psychological: Calm
Objective Data
Lab Data
Lab Results
10/27/24 06:33
Estimated Creat Clear 91 ml/min 10/26/24 05:52
Lactic Acid 1.2 mmol/L (0.7-2.0) 10/23/24 07:02
Total Bilirubin 0.8 mg/dl (0.2-1.3) 10/23/24 07:02
AST 23 U/L (14-36) 10/23/24 07:02
ALT 22 U/L (0-35) 10/23/24 07:02
Alkaline Phosphatase 56 U/L (38-126) 10/23/24 07:02
Most recent labs reviewed.
Microbiology: Report Reviewed
Micro Results:
10/23/24 07:20 Blood Culture - Preliminary
Blood/Venous No Growth in 4 days- Final report to follow
10/24/24 22:00 Blood Culture - Preliminary
Blood/Venous No Growth in 48 hours- Final report to follow
10/24/24 22:00 Blood Culture - Preliminary
Blood/Venous No Growth in 48 hours- Final report to follow
10/23/24 07:02 Blood Culture - Final
Blood/Venous Enterococcus faecalis
Gram Stain - Final
10/23/24 08:10 Urine Culture - Final
Urine Enterococcus faecalis
Care Review
Plan reviewed with: Physician
[2024-10-27] MEDS: UROCIT-K 10 MEQ PO (08:06)
[2024-10-27] MEDS: NOVOLOG FLEXPEN-LOW RESISTANCE SC (08:06)
[2024-10-27] MEDS: DELTASONE 3 MG PO (08:11)
[2024-10-27] MEDS: VISBIOME 1 CAP PO (08:12)
[2024-10-27] MEDS: LYRICA 25 MG PO (08:12)
[2024-10-27] MEDS: PLAQUENIL 200 MG PO (08:12)
[2024-10-27] MEDS: AMARYL 4 MG PO (08:12)
[2024-10-27 08:13] LABS: Blood Urea Nitrogen 17 mg/dl (7-17); Calcium 9.4 mg/dl (8.4-10.2); Carbon Dioxide 27 mmol/L (22-30); Chloride 107 mmol/L (98-107); Estimated Creatinine Clearance 80 ml/min; Glucose 129 mg/dl (70-99); Potassium 4.3 mmol/L (3.5-5.1); Sodium 143 mmol/L (135-145); eGFR > 60.00
--- NOTE | 2024-10-27 08:55 | W.PN.UPDATE ---
Update Note
Progress Note Update
I saw and evaluated the patient. I reviewed the resident�s note and agree with findings and plan as documented in the resident�s note with the following additions/corrections:
Subjective:
afebrile, bp stable
Physical Exam
General: No Apparent Distress
Respiratory: Clear; No Wheezes, Rales, Rhonchi or Crackles
Cardiac: S1/S2 and Regular Rhythm; No Murmur, Rub or Gallop
GI: Soft, Non Tender, Non Distended, Normal Bowel Sounds and Other
Genito-urinary: Mild costovertebral tenderness and no suprapubic tenderness
Skin: Warm
Labs Reviewed:
one of two sets of blood cultures: E faecalis
urine culture 100K E faecalis
10/24 blood cultures now no growth to date
Urine Culture Final 10/25/24-1333
CC: 100,000 CFU/ML Enterococcus faecalis
Organism 1 Enterococcus faecalis
1. Enterococcus faecalis
M.I.C. RX
--------- ---
Ampicillin <=2 S
Gentamicin Synergy Screen <=500 S
Susceptible result indicates synergy is likely with a cell
wall active agent that is also susceptible
(e.g.ampicillin,penicillin,vancomycin)
Levofloxacin <=1 S
Nitrofurantoin-Urine Only <=32 S
Tetracycline <=4 S
Vancomycin 2 S
A&P:
Recurrent Renal Stones despite Medical therapy
Complicated UTI
Bacteremia
- 10/24 blood cultures no growth to date
- blood cultures - 1 set E faecalis - source is urine
- repeat blood cultures x2
- urine culture 100K E faecalis
- start amoxicillin to complete 7 day total course 10/24-10/30
- no need to hold plaquenil or prednisone 3 mg po BID from ID perspective, these are minimally immunosuppressive
- stable for dc from ID perspective
[2024-10-27] MEDS: AMOXIL 500 MG PO (09:11)
--- NOTE | 2024-10-27 10:35 | W.PN.URO.CBU ---
Today's Communication / Plan
-
per hospitalist otpatient remival stents
Assessment / Plan
-
nephrolithiasis with recent 2 stage bilateral ureteroscopy
UTI/bacteremia
hydro
stable after stent re-insertion
will follow BUT HOSPITALIST TO DETEMINE LENGTH OF UIV ABS
Diagnosis
-
Date of Service: October 27, 2024
-
Patient Diagnosis:
Post Op Day:
Patient Diagnosis:
Post Op Day:
Patient Diagnosis:
Post Op Day:
Patient Diagnosis:
nephrolithiasis
hydronephrosis
UTI
Post Op Day:
bilateral stent re-insertion 10/23
Objective
-
Vital Signs
Temp Pulse Resp BP Pulse Ox
97.9 F 63 18 140/71 93
10/27/24 07:30 10/27/24 07:30 10/27/24 07:30 10/27/24 07:30 10/27/24 07:30
Intake and Output
10/26/24 10/27/24 10/28/24
06:59 06:59 06:59
Intake Total 200 / 200 1236 / 1236
Output Total 3475 / 3475
Balance -3275 / -3275 1236 / 1236
Intake:
Oral fluids 1020 / 1020
IV fluids (Total) 200 / 200
IV piggybacks 216 / 216
Output:
Urine, Voided 3475 / 3475
Other:
Number of approximated MODERATE 5 3
amounts of urine
Laboratory Results
10/27/24 06:33
10/27/24 06:33
Review of Systems
-
: Frequency
Physical Exam
-
General - well developed, well nourished, no acute distress
Chest - clear bilaterally
Abdomen - soft, non-tender, positive bowel sounds, no CVAT, no incisional pain or distention
Genitalia - normal
Rectal - normal
Skin - warm & dry with no rash
Neuro - AOx3, no motor deficits
Extremities - no clubbing, no cyanosis, no edema
Incision - clean, dry
Dressing - clean, dry, intact
[2024-10-27 11:46] LABS: Glucose - Point of Care 239 mg/dl (70-99)
[2024-10-27] MEDS: NOVOLOG FLEXPEN-LOW RESISTANCE 2 UNITS SC (11:56)
--- NOTE | 2024-10-27 13:15 | W.PN.HOSP.TC ---
Today's Communication/Plan
-
Discharge today
Continue antibiotics as instructed
Assessment / Plan
Assessment / Plan
59-year-old with history of recurrent bilateral ureteral calculi s/p ureteral stenting admitted for the management of sepsis.
Assessment/plan
# Sepsis secondary to UTI/ureteral calculi
S/p laser lithotripsy, ureteral stent placement on 10/14/2024, stent exchanged on 10/21/2024, but patient has pulled her ureteral stents.
Patient had more symptoms and came back to the ER underwent, cystoscopy, bilateral ureteral stent insertion on 10/23/[address] Tavarez
Was on Degroot, but discontinued 10/25/2024.
Leukocytosis resolved.
Blood cultures and urine cultures with Enterococcus faecalis
Repeat blood cultures�NGTD
Urology and nephrology on board
Will discharge the patient on amoxicillin 5 mg 3 times daily for 11 more days.
# Hyperlipidemia
continue statin
# Diabetes
continue Lantus, Accu-Cheks and sliding scale coverage. Restart Glimepiride.
# Gout
continue allopurinol
# Inflammatory arthritis
restart Plaquenil, and continue prednisone
# Fibromyalgia
continue Cymbalta and Lyrica
# DVT prophylaxis-Lovenox
# Full code
Anticipated Discharge: Today
Subjective/Interval History
-
Date of Service: October 27, 2024
Patient does not have any acute complaints.
Objective Data
-
Labs:
Laboratory Results
10/27/24
06:33
WBC 7.1
Hgb 11.5 L
Hct 34.2 L
Plt Count 200
Sodium 143
Potassium 4.3 D
Chloride 107
Carbon Dioxide 27
BUN 17
Creatinine 0.8
Glucose 129 H
Calcium 9.4
Vital Signs:
Vital Signs
Temp Pulse Resp BP Pulse Ox
97.9 F 63 18 140/71 93
10/27/24 07:30 10/27/24 07:30 10/27/24 07:30 10/27/24 07:30 10/27/24 12:35
I&O
10/26/24 10/27/24 10/28/24
06:59 06:59 06:59
Intake Total 200 / 200 1236 / 1236
Output Total 3475 / 3475
Balance -3275 / -3275 1236 / 1236
Physical Exam
-
General: Well Developed, Well Nourished and No Apparent Distress
HEENT: Normocephalic and Atraumatic
Respiratory: Clear to Auscultation
Cardiac: Regular Rhythm and S1/S2
GI: Soft, Nontender, Nondistended and Normal Bowel Sounds
Genito-urinary: No Costovertebral Tender
Skin: Warm and Dry
Neuro: Awake, Alert, Oriented and AO x 3
Psych: Calm
--- NOTE | 2024-10-27 17:31 | W.DCSUMMARY ---
Discharge Summary
Discharge Data
Date of Admission: 10/23/24
Date of Discharge: 10/27/24
-
Pending Results: No
Hospital Course
Discharging Physician : Dr. Gibbs, Dr. Newell
Disposition : Home
Principal Discharge diagnosis : Complicated UTI
Hospital Course : 59-year-old female with history of recurrent renal stones, fibromyalgias, DM 2 presented to the ER with chills/rigors. Patient underwent ureteroscopy, laser lithotripsy and bilateral stone extraction and double-J stent placement
on 10/14/2024. On 10/21/2024 she underwent further lithotripsy and bilateral stent exchange. She had severe incontinence and was instructed to remove the stents.
ER workup showed White count of 14.2, hematocrit of 34.8,platelets of 165, BUN of 20, creatinine of 0.8, bicarb of 30,lactic acid of 1.2. Urinalysis shows negative leukocyte esterase, negative nitrites, positive blood. Microscopic exam is pending.
CT scan imaging obtained shows a distended bladder with significant left and mild right hydronephrosis, scattered bilateral renal stones. Urology was consulted and was taken to ER for bilateral stent reinsertion. Patient was started on Rocephin
transitioned to ampicillin. Blood cultures and urine cultures with Enterococcus faecalis. ID was consulted for antibiotic management. Patient's labs and vitals have been monitored throughout her hospital stay. Patient has clinically improved,
and stable to be discharged. ID planned on transitioning IV ampicillin to oral ampicillin 500 mg 3 times daily for another 11 days at discharge.
Rest of her chronic medical conditions have been managed as below.
Hyperlipidemia- statin
Diabetes-continued Lantus, Accu-Cheks and sliding scale coverage. Restart Glimepiride.
Gout-continue allopurinol
Inflammatory arthritis-restart Plaquenil, and continue prednisone
Fibromyalgia-continue Cymbalta and Lyrica
Sleep apnea-continue CPAP
Important imaging findings :
Abdomen pelvis CT� Apparent recent removal of left ureteral stent with small bubbles of air seen in the left renal pelvis most likely the sequela of recent stent removal. Other etiology such as infection cannot be excluded. Suggest correlation with
urinalysis.
Bilateral nonobstructing renal calculi.
Approximate 0.2-0.3 cm calculus in the proximal right ureter with minimal right renal collecting system dilatation.
Moderate left renal collecting system and mild to moderate left ureteral dilatation, ureteral dilatation tapers distally. No definitive finding to confirm calculus along the course of the left ureter.
Left greater than right perinephric stranding.
Small layering calculi in the midline posterior urinary bladder.
Discharge Plan
-
Patient Disposition: Home (Routine Discharge)
Discharge Diagnosis/Procedures: Complicated UTI, nephrolithiasis
Condition: Good
Diet: Low Cholesterol and Diabetic, Carb Controlled
Activity: As tolerated
Driving Restrictions: As prior to admission
Bathing Restrictions: None
Referrals:
Zay Dong MD [Active] - (call urology [phone] York or dr Dong to remove stents)
Andre Luis DO [Family Provider] - in less than 1 week
Prescriptions:
New
amoxicillin 500 mg Capsule
500 mg PO Q8H 11 Days Qty: 32 0RF
Continued
prednisone 1 mg Tablet
3 mg PO DAILY
rosuvastatin 5 mg Tablet
5 mg PO SUWE
pregabalin [Lyrica] 25 mg Capsule
25 mg PO BID
glimepiride 2 mg Tablet
4 mg PO DAILY
allopurinol 300 mg Tablet
300 mg PO HS
oxycodone 5 mg Tablet
5 mg PO HSPRN PRN (Reason: SEVERE PAINS)
glimepiride 2 mg Tablet
2 mg PO QPM
hydroxychloroquine [Plaquenil] 200 mg Tablet
200 mg PO BID
duloxetine [Cymbalta] 30 mg Capsule,Delayed Release(Dr/Ec)
30 mg PO QPM
Visbiome 112.5 billion cell Capsule
1 cap PO DAILY
insulin glargine [Lantus Solostar U-100 Insulin] 100 unit/mL (3 mL) Insulin Pen
13 unit SC HS
potassium citrate 10 mEq (1,080 mg) Tablet Extended Release
10 meq PO BID
tamsulosin 0.4 mg Capsule
0.4 mg PO HS Qty: 30 0RF
ibuprofen [Advil] 200 mg Tablet
400 mg PO Q8HPRN PRN (Reason: mild pain)
Discharge Orders:
Discharge Patient (As Directed); Ordered 10/27/24
Ordered By: Reece Storey
Discharge Date and Time
Discharge Date/Time: 10/27/24 13:48
Print Language: YI
== END 2024-10-27 13:48 | disposition home or self-care (01) | DRG 854 ==
LOC: 4 EAST ACU 10:06
PROVIDERS: Hospitalist; Student in an Organized Health Care Education/Training Program; ADMITTING PHYSICIAN Family Medicine; ATTENDING PHYSICIAN Internal Medicine; CONSULT PHYSICIAN Specialist; CONSULT PHYSICIAN Student in an Organized Health Care Education/Training Program; EMERGENCY PHYSICIAN Emergency Medicine; FAMILY PHYSICIAN Family Medicine
PROC: 0T788DZ Dilation of Bilateral Ureters with Intraluminal Device, Via Natural or Artificial Opening Endoscopic (ICD-10-PCS; 2024-10-23)
DX: A41.81 Sepsis due to Enterococcus (principal); C92.11 Chronic myeloid leukemia, BCR/ABL-positive, in remission; N13.6 Pyonephrosis; D62 Acute posthemorrhagic anemia; E11.9 Type 2 diabetes mellitus without complications; E66.9 Obesity, unspecified; E78.2 Mixed hyperlipidemia; G47.33 Obstructive sleep apnea (adult) (pediatric); I10 Essential (primary) hypertension; M79.7 Fibromyalgia; R32 Unspecified urinary incontinence; E87.6 Hypokalemia; G89.4 Chronic pain syndrome; M06.4 Inflammatory polyarthropathy; Z79.84 Long term (current) use of oral hypoglycemic drugs; Z79.52 Long term (current) use of systemic steroids; Z79.4 Long term (current) use of insulin; Z79.899 Other long term (current) drug therapy; Z90.710 Acquired absence of both cervix and uterus; Z68.29 Body mass index [BMI] 29.0-29.9, adult
CPT/HCPCS: 74018; 74176; 76000; 80048; 80053; 81003; 81015; 82607; 82728; 82962; 83540; 83550; 83605; 85025; 85027; 87040; 87077; 87086; 87154; 87186; 87205; 94660; 96365; 97161; 99285; C1758; C1894; C2617

== ENCOUNTER 2025-01-07 14:16 | Inpatient (IN) | payer OTHER, SELFPAY ==
[2025-01-07] VITALS (25 sets, daily range): BP systolic 96–136; BP diastolic 46–91; BMI 28.3
--- NOTE | 2025-01-07 09:22 | ED.GENMED ---
History of Present Illness
General
Chief Complaint: Flank Pain
Source: patient
Exam Limitations: none
Time Seen by Provider: 01/07/25 09:11
History of Present Illness
History of Present Illness:
59-year-old female diabetic with history of kidney stones presents with left flank pain onset 2 days ago with associated fever. She has a history of kidney stones. She has had procedures related to her kidney stones in the past. Prior surgical
history includes cholecystectomy appendectomy total hysterectomy as well as kidney stone procedures. Temperature last evening was 101.5. She is nauseous without vomiting. No urinary symptoms. She also notes mild to right flank pain
Past History
Past History
ED Past Medical History: Cancer (CML), NIDDM and Other (Nephrolithiasis, Sleep apnea, UTI, Pelvic pain)
ED Past Surgical History: Appendectomy, Cholecystectomy, Gynecological (Hysterectomy) and Urological
Social History
Tobacco: Non-smoker
Alcohol: None
Drug: None
Personal:
Living: with family
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
Family History
Family History: Other (Reviewed and non-contributory)
Phy Exam
Physical Exam
Physical Exam:
General: Well-appearing female no acute respiratory distress HEENT: Normocephalic atraumatic
Heart: Regular rate and rhythm
Lungs: Clear no wheeze
Abdomen is soft tender to the left costovertebral angle nondistended no guarding
Extremities: No cyanosis or edema
Skin is warm no rash
Course
Orders/Labs/Results
Orders:
Orders
01/07/25 09:17
0.9% Sodium Chloride 1000 ml [Nss] 1,000 ml IV BOLUS
Ketorolac [Toradol] 15 mg IV NOW STA
Ondansetron Injectable [Zofran] 4 mg IV NOW STA
01/07/25 09:20
CT Abd/pel Without Iv Or Oral Urgent
Comment:
Reason For Exam: left flank pain
01/07/25 09:25
Complete Blood Count/With Diff Urgent
Comprehensive Metabolic Panel Urgent
Lipase Urgent
Blood Culture Q30M
JOY Source: Blood/Venous
Specimen Description:
01/07/25 10:01
Blood Culture Q30M
JOY Source: Blood/Venous
Specimen Description:
01/07/25 11:44
Urinalysis Reflex To Culture Urgent
Date Specimen was Collected: 01/07/25
Time Specimen was Collected: 11:39
Urine Microscopic Reflex Cult Urgent
Urine Culture Urgent
JOY Source: U
Specimen Description:
Date Specimen was Collected: 01/07/25
Time Specimen was Collected: 11:39
01/07/25 13:01
CefTRIAXone [Rocephin] 1,000 mg IV NOW STA
Abnormal Lab Results
01/07/25 01/07/25
09:25 11:44
WBC 12.0 H 10^3/uL
(4.8-10.8)
RBC 4.18 L 10^6/uL
(4.20-5.40)
Absolute Neuts (auto) 10.3 H 10^3/uL
(1.4-6.5)
Absolute Lymphs (auto) 0.8 L 10^3/uL
(1.2-3.4)
Absolute Monos (auto) 0.8 H 10^3/uL
(0.1-0.6)
Neutrophils % 86.0 H %
(42.2-75.2)
Lymphocytes % 6.7 L %
(20.5-51.1)
Potassium 3.1 L mmol/L
(3.5-5.1)
BUN 18 H mg/dl
(7-17)
Glucose 201 H mg/dl
(70-99)
Ur Occult Blood Reflex 3+ A
(Negative)
Leukocyte Esterase Rfl 3+ A
(Negative)
Urine RBC 16-20 A /HPF
(0-2)
Urine WBC (Reflex) 60-70 A /HPF
(0-5)
Urine Bacteria (Reflex) Many A
(Negative)
Urine Albumin (Reflex) 2+ A
(Neg - Trace)
01/07/25 09:25
01/07/25 09:25
Vital Signs
Initial and Last Documented VS:
Initial Vital Signs
Temp Pulse Resp BP Pulse Ox
98.7 F 108 20 136/89 98
01/07/25 08:19 01/07/25 08:19 01/07/25 08:19 01/07/25 08:19 01/07/25 08:19
Last Documented Vital Signs
Temp Pulse Resp BP Pulse Ox
98.8 F 108 20 101/63 96
01/07/25 11:02 01/07/25 08:19 01/07/25 08:19 01/07/25 11:00 01/07/25 11:45
MDM/Problems Addressed
Differential Diagnosis Includes:
Left flank pain and some right flank pain. Consider renal colic versus pyelonephritis versus constipation
Will check labs and urine. Patient notes a fever. She has a history of kidney stones most recently treated in October of this year. Concern for possible sepsis blood cultures pending CT without contrast pending
*Pulse Oximetry
SaO2: 98
Oxygen Mode of Delivery: Room air
Patient hypoxic: no
*Critical Care Note
Total Time (30-74mins, 75-104mins- exclusive of procedures): Not Applicable
Update Note
Update Note:
Patient does have a 5 mm stone in the distal left ureter causing severe hydronephrosis. Urinalysis concerning for UTI. In light of insulin-dependent diabetic patient with fever at home elevated white count and UTI with a stone we will opt to
admit. Hospital. Fluids ordered Rocephin ordered. Pain was improved with Toradol. Urology and hospitalist made aware
ED Attending Note
-
Portions of this chart may have been created with voice recognition software.� Occasional wrong word or��sound alike� substitutions may have occurred due to the inherent limitations of voice recognition software.
Discharge Plan
Departure
Patient Disposition: Admit
Date of Disposition: 01/07/25
Time of Disposition: 13:06
Presentation/result/management discussed w/ accepting MD/DO: Hospitalist
Patient with high blood pressure during this ER visit?: No
Discharge Problem:
UTI (urinary tract infection), Kidney stone
Prescriptions:
No Action
prednisone 1 mg Tablet
3 mg PO DAILY
rosuvastatin 5 mg Tablet
5 mg PO SUWE
pregabalin [Lyrica] 25 mg Capsule
25 mg PO BID
glimepiride 2 mg Tablet
4 mg PO DAILY
allopurinol 300 mg Tablet
300 mg PO HS
oxycodone 5 mg Tablet
5 mg PO HSPRN PRN (Reason: SEVERE PAINS)
glimepiride 2 mg Tablet
2 mg PO QPM
hydroxychloroquine [Plaquenil] 200 mg Tablet
200 mg PO BID
duloxetine [Cymbalta] 30 mg Capsule,Delayed Release(Dr/Ec)
30 mg PO QPM
Visbiome 112.5 billion cell Capsule
1 cap PO DAILY
insulin glargine [Lantus Solostar U-100 Insulin] 100 unit/mL (3 mL) Insulin Pen
13 unit SC HS
potassium citrate 10 mEq (1,080 mg) Tablet Extended Release
10 meq PO BID
tamsulosin 0.4 mg Capsule
0.4 mg PO HS Qty: 30 0RF
ibuprofen [Advil] 200 mg Tablet
400 mg PO Q8HPRN PRN (Reason: mild pain)
amoxicillin 500 mg Capsule
500 mg PO Q8H 11 Days Qty: 32 0RF
Referrals:
Andre Luis DO [Family Provider, Family Practice]
Interventions
Interventions:
*Risk Screen - Suicide Last Done: 01/07/25 08:19
*General Assessment Last Done: 01/07/25 08:19
*Neglect/Abuse Screening Last Done: 01/07/25 09:33
*ED- Fall Risk Assessment Last Done: 01/07/25 09:33
*ED COVID-19 Vaccine History Last Done: 01/07/25 09:33
JS-Hcfvwy-Szxifrjrtj Assessment Last Done: 01/07/25 10:11
ED-Female Genitourinary Assessment Last Done: 01/07/25 09:13
Discharge Date and Time
Print Language: LATVIAN
[2025-01-07 09:31] LABS: Hematocrit 37.1 % (37.0-47.0); Hemoglobin 12.4 g/dL (12.0-16.0); Mean Corp Hgb Conc. 33.4 g/dL (33.0-37.0); Mean Corpuscular Volume 88.8 fL (81.0-99.0); Nucleated Red Blood Cells % 0 %; Platelet Count 216 10^3/uL (130-400); Red Cell Dist. Width 12.4 % (11.5-14.5)
[2025-01-07] MEDS: TORADOL 15 MG IV (09:32)
[2025-01-07] MEDS: ZOFRAN 4 MG IV (09:32)
[2025-01-07] MEDS: NSS 1000 IV ×3 (09:32→21:28)
[2025-01-07 10:33] LABS: Lipase 33 U/L (23-300)
[2025-01-07 10:56] LABS: ALT (SGPT) 22 U/L (0-35); AST (SGOT) 21 U/L (14-36); Albumin 4.5 g/dl (3.5-5.0); Alkaline Phosphatase 87 U/L (38-126); Blood Urea Nitrogen 18 mg/dl (7-17); Calcium 9.5 mg/dl (8.4-10.2); Carbon Dioxide 29 mmol/L (22-30); Chloride 98 mmol/L (98-107); Glucose 201 mg/dl (70-99); Potassium 3.1 mmol/L (3.5-5.1); Sodium 136 mmol/L (135-145); Total Protein 7.6 g/dl (6.3-8.2); eGFR > 60.00
[2025-01-07 12:23] LABS: Urine Character Cloudy (Clear)
[2025-01-07 12:45] LABS: Urine Red Blood Cell 16-20 /HPF (0-2)
[2025-01-07 12:46] LABS: Urine White Cell 60-70 /HPF (0-5)
[2025-01-07] MEDS: ROCEPHIN 1000 MG IV (13:16)
--- NOTE | 2025-01-07 13:18 | HPS.HSE ---
Addendum entered and electronically signed by Cassie Stanley MD 01/07/25 16:14:
-hold CHEMICAL ETCHING PROCESSOR HCTZ in setting of sepsis
Patient is on prednisone 5mg PO QD at home, monitor blood pressure for need for stress dose steroids tati-op
Hold CHEMICAL ETCHING PROCESSOR Glimepiride
Patient is ordered for lower dose of home Lantus
Original Note:
Family Physician
-
Family Physician: Andre Luis
Chief Complaint
-
flank pain and fever
History of Present Illness
Ms. Vivian Washington is a 59 yo woman with hx recurrent renal stones (s/p lithotripsy, double J stent placement 10/14/24; bilateral ureteroscopy and laser lithotripsy remaining stone burden 10/21/24 self-removed stents; s/p hospitalization for
UTI/bacteremia), fibromyalgia, DM II, presents to the ER with flank pain and fever.
Patient has had fever up to 101 over past 2 days. This morning noticed flank pain. She was also nauseated, no vomiting. She has had decreased appetite.
No chest pain or shortness of breath. No LE swelling.
Medical History
Past Medical History
Past Medical History: Reports Fibromyalgia, Hypercholesterolemia, IDDM and Other (b/l uter)
Additional Past Medical History:
History of bilateral recurrent obstructive ureteral calculi, s/p ureteral stents x 2, Chronic myelocytic leukemia in remission, irritable bowel syndrome, mixed hyperlipidemia, fibromyalgia, IDDM-type II, MDD, diverticulosis of large intestine,
Past Surgical History: Reports Other
Additional Past Surgical History:
Bilateral ureteral stents x 2, remote history of .
Social History
Tobacco: Non-smoker
Alcohol: None
Drug: None
Family History
Family History: Not pertinent
Allergies / Home Medications
Allergies reflects when Allergies were last updated in [employer].
Home Medications with original date entered in [employer]
Allergy/Medication List:
Allergies
Allergy/AdvReac Type Severity Reaction Status Date / Time
No Known Allergies Allergy Verified 01/07/25 08:20
Home Medications
glimepiride 2 mg tablet 4 mg PO DAILY Diabetes 02/13/24
prednisone 1 mg tablet 3 mg PO DAILY Autoimmune Disorder 02/13/24
pregabalin 25 mg capsule (Lyrica) 25 mg PO BID Pain 02/13/24
rosuvastatin 5 mg tablet 5 mg PO SUWE High Cholesterol 02/13/24
allopurinol 300 mg tablet 300 mg PO HS Gout 02/20/24
Lactobac no.2-Bifidobac no.1-S. thermo 112.5 billion cell capsule (Visbiome) 1 cap PO DAILY Supplement 10/14/24
duloxetine 30 mg capsule,delayed release (Cymbalta) 30 mg PO QPM Depression 10/14/24
glimepiride 2 mg tablet 2 mg PO QPM Diabetes 10/14/24
hydroxychloroquine 200 mg tablet (Plaquenil) 200 mg PO BID Autoimmune Disorder 10/14/24
insulin glargine 100 unit/mL (3 mL) subcutaneous pen (Lantus Solostar U-100 Insulin) 13 unit SC HS Diabetes 10/14/24
oxycodone 5 mg tablet 5 mg PO HSPRN PRN SEVERE PAINS 10/14/24
potassium citrate 10 mEq (1,080 mg) tablet,extended release 10 meq PO BID Electrolyte Repletion 10/14/24
tamsulosin 0.4 mg capsule 0.4 mg PO HS #30 caps 10/15/24
ibuprofen 200 mg tablet (Advil) 400 mg PO Q8HPRN PRN mild pain 10/23/24
amoxicillin 500 mg capsule 500 mg PO Q8H 11 days #32 caps 10/27/24
awaiting med rec finalizaton
Review of Systems
-
History Source: Patient
A 12 point ROS was completed and negative except as noted: Yes
Physical Exam
Vital Signs
Vital Signs
Temp Pulse Resp BP Pulse Ox
98.8 F 108 20 101/63 96
01/07/25 11:02 01/07/25 08:19 01/07/25 08:19 01/07/25 11:00 01/07/25 11:45
Physical Exam
General: No Apparent Distress and Comfortable
HEENT: Moist mucous membranes
Respiratory: Clear; No Wheezes, Rales, Rhonchi or Crackles
Cardiac: S1/S2 and Regular Rhythm; No Murmur, Rub or Gallop
GI: Soft, Non Tender, Non Distended, Normal Bowel Sounds and Other
Genito-urinary: Other (No suprapubic tenderness.)
Musculoskeletal: No Clubbing and No Edema
Skin: Warm
Neuro: AO x 3
Psych: Calm
Laboratory Results
-
01/07/25 09:25
01/07/25 09:25
Laboratory Results
Total Bilirubin 1.1 mg/dl (0.2-1.3) 01/07/25 09:25
AST 21 U/L (14-36) 01/07/25 09:25
ALT 22 U/L (0-35) 01/07/25 09:25
Alkaline Phosphatase 87 U/L (38-126) 01/07/25 09:25
Lipase 33 U/L (23-300) 01/07/25 09:25
Data Reviewed
-
Diagnostic Radiology: Report Reviewed by me
Lab Data: Labs Reviewed by me
Impression/Plan
-
Ms. Vivian Washington is a 59 yo woman with hx recurrent renal stones (s/p lithotripsy, double J stent placement 10/14/24; bilateral ureteroscopy and laser lithotripsy remaining stone burden 10/21/24 self-removed stents; s/p hospitalization for
UTI/bacteremia), fibromyalgia, DM II, presents to the ER with flank pain and fever.
Triage VS: T 98.7, P 108, RR 20, BP 136/89, SpO2 98%
LABS: WBC 12, Hg 12.4, PLT 216, Na 136, K+ 3.1, BUN 18, Cr 0.9, Glucose 201
UA with 60-[address] A/P
IMPRESSION:
Severe left hydroureteronephrosis with a 5 mm obstructing calculus in the distal left ureter. Numerous small bilateral intrarenal calculi.
Complicated UTI with 5mm obstructing stone left ureter and hyroureteronephrosis
Sepsis 2/2 Above
Hx Recurrent Nephrolithiasis
-admit to telemetry
-discussed plan with Dr. Tavarez, plan for OR this evening for stent placement
-NPO
-NS @ 125
-IV Zosyn based on past cultures
-IV Toradol for moderate pain; IV Dilaudid for severe pain
-follow up lactate
-follow up blood and urine cultures
Hypokalemia
-replete, add on Mag
Fibromyalgia
DM II
-ISS
*awaiting remaining med rec
DVT PPx SCD
FULL CODE
76 minutes spent on patient care
[2025-01-07 13:49] LABS: Estimated Creatinine Clearance 71 ml/min; Magnesium 1.6 mg/dl (1.6-2.3)
[2025-01-07] MEDS: ZOSYN 50 IV ×2 (14:18→19:54)
[2025-01-07] MEDS: KCL 270 MEQ IV (14:23)
--- NOTE | 2025-01-07 14:27 | CON.MD ---
Consultation - Medical
-
see dictated note
full exam and consult to follow
pt well known to urology service
multiple stones- often complicated by UTI
now presents with obstructing left ureteral stone/hydro with subjective fevers- + ua and elevated wbc
reviewed with med team
reviewed all clinical date and spoke with pt by phone
have rec OR for ureteral stent placement
risks, benefits, alternatives reviewed
will perform exam at bedside pre-op to expidiate treatment
Consultation
-
Date/Time Consultation Requested: 01/07/25 at 1:30pm
Date/Time Consultation Performed: 01/07/25 at 2pm
Requesting Provider: ER
Performing Provider: dr neal
Reason for Consultation: stone/fever
--- NOTE | 2025-01-07 16:06 | CM ---
Patient seen at bedside in ED. Patient states that she lives with her in a one story home with no past needs for DME other than CPAP. Patient stated that she uses the [facility] in [place] and that her PCP is Dr. Luis. Patient plan is
for discharge home with no needs. CM will continue to follow for discharge planning needs.
Plan;home with no needs
[2025-01-07 16:51] LABS: Glucose - Point of Care 113 mg/dl (70-99)
--- NOTE | 2025-01-07 17:08 | W.SUR.PREOP ---
Pre-Operative Surgical Note
-
I have examined this patient prior to the performance of the scheduled procedure.
The patient's condition is unchanged from the time of the current History and
Physical and the patient is able to undergo the scheduled procedure.
[2025-01-07] MEDS: OFIRMEV 100 IV (18:20)
[2025-01-07] MEDS: TORADOL 10 MG IV (18:28)
[2025-01-07 18:29] LABS: Glucose - Point of Care 150 mg/dl (70-99)
[2025-01-07] MEDS: NOVOLOG FLEXPEN-LOW RESISTANCE SC (19:46)
[2025-01-07] MEDS: PLAQUENIL 200 MG PO (19:54)
[2025-01-07] MEDS: LYRICA 25 MG PO (19:54)
[2025-01-07] MEDS: UROCIT-K 10 MEQ PO (19:54)
[2025-01-07] MEDS: CYMBALTA DELAYED RELEASE 30 MG PO (19:54)
[2025-01-07 20:48] LABS: Glucose - Point of Care 283 mg/dl (70-99)
[2025-01-07 21:27] LABS: Glucose - Point of Care 355 mg/dl (70-99)
[2025-01-07] MEDS: ZYLOPRIM 300 MG PO (21:28)
[2025-01-07] MEDS: CRESTOR 5 MG PO (21:28)
[2025-01-07] MEDS: LANTUS 0.06 UNITS SC (21:29)
[2025-01-08] MEDS: ZOSYN 50 IV ×4 (01:42→21:01)
[2025-01-08 02:57] VITALS: BP 100/56
--- NOTE | 2025-01-08 06:25 | W.PN.URO.CBU ---
Today's Communication / Plan
-
remove marquis
continue antibx
Assessment / Plan
-
left ureteral stone and UTI
s/p stent
pt stable
remove marquis- start pyridium
continue zosyn
await urine abd blood cx's
Diagnosis
-
Date of Service: January 08, 2025
-
Patient Diagnosis:
stone
UTI
Post Op Day:
left ureteral stent 01/07
Subjective
-
pt febrile post op- now afebrile
feels better
HD stable
urine clear
Objective
-
Vital Signs
Temp Pulse Resp BP Pulse Ox
97.7 F 68 16 100/56 96
01/08/25 02:57 01/08/25 02:57 01/08/25 02:57 01/08/25 02:57 01/08/25 02:57
Intake and Output
01/06/25 01/07/25 01/08/25
06:59 06:59 06:59
Intake Total 200 / 200
Output Total 500 / 500
Balance -300 / -300
Intake:
IV fluids (Total) 200 / 200
Normosol 200 / 200
Output:
Urine, Marquis 500 / 500
Review of Systems
-
Constitutional: Fatigue
Respiratory: No Symptoms
Cardiac: No Symptoms
Abdomen/GI: No Symptoms
Physical Exam
-
General - no acute distress
Abdomen - soft, non-tender
Genitalia - marquis
[2025-01-08 07:00] VITALS: BP 105/62
[2025-01-08 07:14] LABS: Glucose - Point of Care 190 mg/dl (70-99)
--- NOTE | 2025-01-08 08:24 | W.PN.HOSP.TC ---
Today's Communication/Plan
-
.
Assessment / Plan
Assessment / Plan
Physical Exam
General: No Apparent Distress and Comfortable
HEENT: Moist mucous membranes
Respiratory: Clear; No Wheezes, Rales, Rhonchi or Crackles
Cardiac: S1/S2 and Regular Rhythm;
GI: Soft, Non Tender, Non Distended, Normal Bowel Sounds and Other
Genito-urinary: Mild left CV tenderness, no suprapubic tenderness.
Musculoskeletal: No Clubbing and No Edema
Skin: Warm
Neuro: AO x 3, she followed commands.
Psych: Calm
A/P
# Complicated UTI with 5mm obstructing stone left ureter and hydroureteronephrosis
Sepsis 2/2 Above
Left ureteral stone/ left pyelonephritis s/p Cystoscopy and left ureteral stent placement by Dr Tavarez on 01/07.
Hx Recurrent Nephrolithiasis
c/w IV Abx pending cultures
Degroot was placed, will be removed
Negative lactic acid
Stop IVF while good oral intake
Appreciate urology help
#Hypokalemia
-replete, add on Mag
#Fibromyalgia
#DM II
-ISS
DVT PPx add SQ heparin
FULL CODE
Total time spent to see the patient, examine the patient, review lab results and data, discuss treatment plan with patient, nursing staff around 55 minutes
Anticipated Discharge: 24 - 48 hours
Subjective/Interval History
-
Date of Service: January 08, 2025
She feels better
Less left flank pain
No hematuria
Objective Data
-
Labs:
Laboratory Results
01/08/25
06:00
WBC Pending
Hgb Pending
Hct Pending
Plt Count Pending
Sodium Pending
Potassium Pending
Chloride Pending
Carbon Dioxide Pending
BUN Pending
Creatinine Pending
Glucose Pending
Calcium Pending
Vital Signs:
Vital Signs
Temp Pulse Resp BP Pulse Ox
97.7 F 68 16 100/56 96
01/08/25 02:57 01/08/25 02:57 01/08/25 02:57 01/08/25 02:57 01/08/25 02:57
I&O
01/07/25 01/08/25 01/09/25
06:59 06:59 06:59
Intake Total 200 / 200
Output Total 500 / 500
Balance -300 / -300
[2025-01-08] MEDS: LYRICA 25 MG PO ×2 (09:00→21:01)
[2025-01-08] MEDS: UROCIT-K 10 MEQ PO ×2 (09:00→21:00)
[2025-01-08] MEDS: VISBIOME 1 CAP PO (09:00)
[2025-01-08] MEDS: DELTASONE 3 MG PO (09:00)
[2025-01-08] MEDS: PLAQUENIL 200 MG PO ×2 (09:00→21:01)
[2025-01-08] MEDS: NSS IV (09:11)
[2025-01-08 09:59] LABS: Hematocrit 33.8 % (37.0-47.0); Hemoglobin 11.1 g/dL (12.0-16.0); Mean Corp Hgb Conc. 32.8 g/dL (33.0-37.0); Mean Corpuscular Volume 91.1 fL (81.0-99.0); Nucleated Red Blood Cells % 0 %; Platelet Count 213 10^3/uL (130-400); Red Cell Dist. Width 12.3 % (11.5-14.5)
[2025-01-08] MEDS: NOVOLOG FLEXPEN-LOW RESISTANCE 1 UNITS SC ×2 (10:16→16:57)
[2025-01-08 10:45] LABS: Blood Urea Nitrogen 21 mg/dl (7-17); Calcium 8.5 mg/dl (8.4-10.2); Carbon Dioxide 27 mmol/L (22-30); Chloride 107 mmol/L (98-107); Estimated Creatinine Clearance 105 ml/min; Glucose 160 mg/dl (70-99); Magnesium 1.9 mg/dl (1.6-2.3); Potassium 3.7 mmol/L (3.5-5.1); Sodium 142 mmol/L (135-145); eGFR > 60.00
[2025-01-08 11:09] LABS: Glycohemoglobin (HgbA1c) 6.5 % (4.0-5.6)
[2025-01-08 11:40] VITALS: BP 104/57
[2025-01-08 11:47] LABS: Glucose - Point of Care 235 mg/dl (70-99)
[2025-01-08] MEDS: NOVOLOG FLEXPEN-LOW RESISTANCE 2 UNITS SC (12:01)
--- NOTE | 2025-01-08 12:21 | CM ---
Chart reviewed and case sealer will follow with patient progress.
Plan; Home when stable.
[2025-01-08 14:50] LABS: Hepatitis C Antibody Negative (Negative)
[2025-01-08 16:00] VITALS: BP 123/59
[2025-01-08] MEDS: CYMBALTA DELAYED RELEASE 30 MG PO (16:37)
[2025-01-08] MEDS: HEPARIN 5000 UNITS SC (16:37)
[2025-01-08 16:49] LABS: Glucose - Point of Care 162 mg/dl (70-99)
[2025-01-08 19:15] VITALS: BP 133/60
[2025-01-08 21:38] LABS: Glucose - Point of Care 195 mg/dl (70-99)
[2025-01-08] MEDS: LANTUS 0.06 UNITS SC (21:53)
[2025-01-08] MEDS: ZYLOPRIM 300 MG PO (21:54)
[2025-01-08] MEDS: FLOMAX 0.4 MG PO (21:54)
[2025-01-08 23:56] VITALS: BP 116/58
[2025-01-09] MEDS: HEPARIN SC ×2 (00:31→01:01)
[2025-01-09] MEDS: ZOSYN 50 IV ×2 (01:46→09:13)
[2025-01-09 03:18] VITALS: BP 109/60
[2025-01-09 07:47] VITALS: BP 131/70
--- NOTE | 2025-01-09 08:00 | W.PN.HOSP.TC ---
Today's Communication/Plan
-
dc later today
Assessment / Plan
Assessment / Plan
Physical Exam
General: No Apparent Distress and Comfortable
HEENT: Moist mucous membranes
Respiratory: Clear; No Wheezes, Rales, Rhonchi or Crackles
Cardiac: S1/S2 and Regular Rhythm;
GI: Soft, Non Tender, Non Distended, Normal Bowel Sounds and Other
Genito-urinary: No left CV tenderness, no suprapubic tenderness.
Musculoskeletal: No Clubbing and No Edema
Skin: Warm
Neuro: AO x 3, she followed commands.
Psych: Calm
A/P
# Complicated UTI with 5mm obstructing stone left ureter and hydroureteronephrosis
Sepsis 2/2 Above
Left ureteral stone/ left pyelonephritis s/p Cystoscopy and left ureteral stent placement by Dr Tavarez on 01/07.
Hx Recurrent Nephrolithiasis
c/w IV Abx
Blood culture NGTD
Urine is pending
Degroot was removed, voiding well
Negative lactic acid
Stopped IVF while good oral intake
Appreciate urology help, ok to f/w in office.
#Hypokalemia
resolved.
#Fibromyalgia
#DM II
-ISS
DVT PPx add SQ heparin
FULL CODE
Total discharge time spent to see the patient, examine the patient, review lab results and data, discuss discharge plan with patient, nursing staff around 65 minutes
Anticipated Discharge: Today
Subjective/Interval History
-
Date of Service: January 09, 2025
No chest pain
No sob
No flank pain
No dysuria
would like to go home
Objective Data
-
Labs:
Laboratory Results
01/09/25
06:53
WBC Pending
Hgb Pending
Hct Pending
Plt Count Pending
Sodium Pending
Potassium Pending
Chloride Pending
Carbon Dioxide Pending
BUN Pending
Creatinine Pending
Glucose Pending
Calcium Pending
Vital Signs:
Vital Signs
Temp Pulse Resp BP Pulse Ox
98.8 F 65 20 131/70 100
01/09/25 07:47 01/09/25 07:47 01/09/25 07:47 01/09/25 07:47 01/09/25 07:47
I&O
01/08/25 01/09/25 01/10/25
06:59 06:59 06:59
Intake Total 200 / 200
Output Total 500 / 500
Balance -300 / -300
--- NOTE | 2025-01-09 08:34 | W.PN.URO.CBU ---
Today's Communication / Plan
-
await ucx
Assessment / Plan
-
left ureteral stone and UTI
s/p stent
pt stable
awaiting ucx results
when medically stable for discharge and cx results in- would send home on another 10 days of antibx and pyridium 100mg po tid and tramadol
should call dr neal's office on sunday to schedule outpt f/u
Diagnosis
-
Date of Service: January 09, 2025
-
Patient Diagnosis:
stone
UTI
Post Op Day:
left ureteral stent 01/07
Subjective
-
pt feels better
no fevers
wbc and ucx pending- blood cx's negative to date
Objective
-
Vital Signs
Temp Pulse Resp BP Pulse Ox
98.8 F 65 20 131/70 100
01/09/25 07:47 01/09/25 07:47 01/09/25 07:47 01/09/25 07:47 01/09/25 07:47
Intake and Output
01/08/25 01/09/25 01/10/25
06:59 06:59 06:59
Intake Total 200 / 200
Output Total 500 / 500
Balance -300 / -300
Intake:
IV fluids (Total) 200 / 200
Normosol 200 / 200
Output:
Urine, Degroot 500 / 500
Other:
Number of approximated MODERATE 2
amounts of urine
Review of Systems
-
Constitutional: Fatigue
Respiratory: No Symptoms
Cardiac: No Symptoms
Abdomen/GI: No Symptoms
: Frequency
Physical Exam
-
General -no acute distress
[2025-01-09 08:49] LABS: Hematocrit 31.3 % (37.0-47.0); Hemoglobin 10.5 g/dL (12.0-16.0); Mean Corp Hgb Conc. 33.5 g/dL (33.0-37.0); Mean Corpuscular Volume 90.2 fL (81.0-99.0); Platelet Count 203 10^3/uL (130-400); Red Cell Dist. Width 12.4 % (11.5-14.5)
[2025-01-09] MEDS: PLAQUENIL 200 MG PO (09:14)
[2025-01-09] MEDS: DELTASONE 3 MG PO (09:14)
[2025-01-09] MEDS: UROCIT-K 10 MEQ PO (09:15)
[2025-01-09] MEDS: VISBIOME 1 CAP PO (09:16)
[2025-01-09] MEDS: LYRICA 25 MG PO (09:21)
[2025-01-09] MEDS: NOVOLOG FLEXPEN-LOW RESISTANCE 1 UNITS SC ×2 (09:24→11:52)
[2025-01-09 09:25] LABS: Glucose - Point of Care 154 mg/dl (70-99)
[2025-01-09 09:38] LABS: Blood Urea Nitrogen 17 mg/dl (7-17); Calcium 8.6 mg/dl (8.4-10.2); Carbon Dioxide 26 mmol/L (22-30); Chloride 108 mmol/L (98-107); Estimated Creatinine Clearance 90 ml/min; Glucose 133 mg/dl (70-99); Potassium 3.6 mmol/L (3.5-5.1); Sodium 142 mmol/L (135-145); eGFR > 60.00
[2025-01-09 11:35] LABS: Glucose - Point of Care 197 mg/dl (70-99)
--- NOTE | 2025-01-09 13:00 | W.DCSUMMARY ---
Discharge Summary
Discharge Data
Date of Admission: 01/07/25
Date of Discharge: 01/09/25
-
Pending Results: No
Hospital Course
59 years old female presented with left flank pain and fever. She was seen in September of 2024 with bilateral obstructing stones and taken to the operating room by Dr. Dong for semi-emergent ureteroscopy, stone fragmentation, and stent placement.
She was taken back to the operating room following this procedure by Dr. York, where she underwent bilateral ureteroscopy and renoscopy with laser lithotripsy of remaining stone burden. Because of her
generalized stent intolerance, bilateral stents were placed, but they were left on strings. These stents became dislodged prior to their scheduled removal date. She presented to the emergency room soon after this with bilateral hydronephrosis and
fever and flank pain. She was taken back to the operating room and stents were replaced. There did not appear to be significant stone burden and rather this was presumed to be due to ureteral edema. Her urine culture at that time did show
Enterococcus and she was treated. She subsequently returned to see Dr. York, who removed the stents endoscopically. She has seen Nephrology for stone prevention. Unfortunately, the patient developed acute left flank pain and presented to the
emergency room on . She was febrile with an elevated white count and a dirty urine. A CT scan showed minimal stone burden in her kidneys, but a 5 mm stone obstructing the left distal ureter. She was seen by urology and taken to operating room.
She underwent cystoscopy and left ureteral stent placement by Dr Tavarez on 01/07/25 with no complications. Degroot catheter was removed after that. Patient was able to urinate with no difficulty. She was given Flomax and Pyridium. Patient received
intravenous antibiotic. Blood culture did not show any growth. Urine culture showed enterococcus. She remained hemodynamically stable. She tolerated diet well. No recurrent fever. Leukocytosis had resolved. Urology doctor recommended
outpatient follow-up. Patient was discharged home in a stable condition.
Discharge Plan
-
Patient Disposition: Home (Routine Discharge)
Discharge Diagnosis/Procedures: Complicated UTI with 5mm obstructing stone left ureter and hydroureteronephrosis
You met the criteria of sepsis on admission. You had ureteral stone/ left pyelonephritis s/p Cystoscopy and left ureteral stent placement by Dr Tavarez on 01/07.
You received intravenous antibiotics. No fever. White blood cell count came back to normal. Normal renal function. You are able to void. Blood culture showed no growth as of to date. Urine culture is pending upon discharge.
You are discharge on Augmentin and Flomax:
Potential side effects of Augmentin include GI upset/diarrhea/skin rash.
Potential side effects of Flomax include dizziness/hypotension/headache
Condition: Good
Diet: As tolerated and Diabetic, Carb Controlled
Referrals:
Andre Luis DO [Family Provider, Family Practice] - in one to two weeks
Eric Tavarez Jr., MD [Active, Urology] - 01/12/25
Prescriptions:
New
tamsulosin 0.4 mg Capsule
0.4 mg PO HS Qty: 30 0RF
amoxicillin-pot clavulanate 875-125 mg tablet
1 tab PO BID Qty: 14 0RF
phenazopyridine [Pyridium] 100 mg tablet
100 mg PO TID PRN (Reason: Pain) Qty: 20 0RF
Continued
prednisone 1 mg Tablet
3 mg PO DAILY
rosuvastatin 5 mg Tablet
5 mg PO SUWE
pregabalin [Lyrica] 25 mg Capsule
25 mg PO BID
glimepiride 2 mg Tablet
4 mg PO DAILY
allopurinol 300 mg Tablet
300 mg PO HS
glimepiride 2 mg Tablet
2 mg PO QPM
hydroxychloroquine [Plaquenil] 200 mg Tablet
200 mg PO BID
Visbiome 112.5 billion cell Capsule
1 cap PO DAILY
insulin glargine [Lantus Solostar U-100 Insulin] 100 unit/mL (3 mL) Insulin Pen
13 unit SC HS
potassium citrate 10 mEq (1,080 mg) Tablet Extended Release
10 meq PO BID
ibuprofen [Advil] 200 mg Tablet
400 mg PO Q8HPRN PRN (Reason: mild pain)
hydrochlorothiazide 50 mg Tablet
50 mg PO DAILY
duloxetine 30 mg Capsule,Delayed Release(Dr/Ec)
30 mg PO QPM
Discharge Orders:
Discharge Patient (As Directed); Ordered 01/09/25
Ordered By: Magy Cornelius
Discharge Date and Time
Discharge Date/Time: 01/09/25 12:48
Print Language: GRENADIAN
--- NOTE | 2025-01-09 16:41 | CM ---
Home no needs
Plan; Home
== END 2025-01-09 12:48 | disposition home or self-care (01) | DRG 854 ==
LOC: 4 WEST ACU 14:16
PROVIDERS: Physician Assistant; ADMITTING PHYSICIAN Student in an Organized Health Care Education/Training Program; ATTENDING PHYSICIAN Internal Medicine; CONSULT PHYSICIAN Specialist; EMERGENCY PHYSICIAN Emergency Medicine; FAMILY PHYSICIAN Family Medicine
PROC: 0T778DZ Dilation of Left Ureter with Intraluminal Device, Via Natural or Artificial Opening Endoscopic (ICD-10-PCS; 2025-01-07)
DX: A41.9 Sepsis, unspecified organism (principal); C92.10 Chronic myeloid leukemia, BCR/ABL-positive, not having achieved remission; N13.6 Pyonephrosis; N20.2 Calculus of kidney with calculus of ureter; B95.2 Enterococcus as the cause of diseases classified elsewhere; Z79.84 Long term (current) use of oral hypoglycemic drugs; Z79.4 Long term (current) use of insulin; M79.7 Fibromyalgia; E11.9 Type 2 diabetes mellitus without complications; E78.2 Mixed hyperlipidemia; E66.9 Obesity, unspecified; Z68.28 Body mass index [BMI] 28.0-28.9, adult; E87.6 Hypokalemia; F32.A Depression, unspecified; G47.30 Sleep apnea, unspecified; I10 Essential (primary) hypertension; M13.80 Other specified arthritis, unspecified site; Z90.49 Acquired absence of other specified parts of digestive tract; Z90.710 Acquired absence of both cervix and uterus
CPT/HCPCS: 74018; 74176; 76000; 80048; 80053; 81003; 81015; 82962; 83036; 83605; 83690; 83735; 85025; 85027; 86803; 87040; 87077; 87086; 87186; 96361; 96374; 96375; 99285; C2617

== ENCOUNTER 2025-01-15 06:24 | Day surgery (SDC) | payer OTHER, SELFPAY ==
[2025-01-15] VITALS (7 sets, daily range): BP systolic 126–139; BP diastolic 61–74; BMI 27.3
[2025-01-15 08:54] LABS: Glucose - Point of Care 129 mg/dl (70-99)
[2025-01-15] MEDS: NORMOSOL-R/PLASMALYTE-A 1000 IV (09:10)
[2025-01-15] MEDS: VANCOCIN 200 IV (09:27)
[2025-01-15 11:12] LABS: Glucose - Point of Care 129 mg/dl (70-99)
[2025-01-15 11:40] LABS: Glucose - Point of Care 122 mg/dl (70-99)
[2025-01-15] MEDS: DETROL LA 4 MG PO (12:01)
[2025-01-15] MEDS: MOTRIN 600 MG PO (12:38)
== END 2025-01-15 13:10 | disposition home or self-care (01) ==
LOC: SDS 06:24
PROVIDERS: ATTENDING PHYSICIAN Specialist
DX: N20.2 Calculus of kidney with calculus of ureter (principal)
CPT/HCPCS: 52356; 74018; 76000; 82365; 82962; C1894; C2617

== ENCOUNTER → 2025-02-23 12:30 | Outpatient (REF) | payer OTHER, SELFPAY | LOC: HWRAD 12:30 | PROVIDERS: ATTENDING PHYSICIAN Internal Medicine; FAMILY PHYSICIAN Family Medicine; REFERRING PHYSICIAN Specialist | DX: N20.0 Calculus of kidney (principal) | CPT/HCPCS: 76770 ==

== ENCOUNTER → 2025-03-19 13:01 | Outpatient (REF) | payer OTHER, SELFPAY | LOC: WDC 13:01 | PROVIDERS: ATTENDING PHYSICIAN Family Medicine | DX: Z12.31 Encounter for screening mammogram for malignant neoplasm of breast (principal) | CPT/HCPCS: 77063; 77067 ==